=== PATIENT | female | born 1985 | race American Indian/Alaskan Native ===

== ENCOUNTER 2018-11-23 22:05 | Emergency (ER) | payer SELFPAY ==
[2018-11-23 22:15] VITALS: BP 97/53; PULSE 72; RESP 16; TEMP 37; O2SAT 94; BMI 34.0
[2018-11-23 23:17] VITALS: BP 103/61; PULSE 80; RESP 18; O2SAT 100
--- NOTE | 2018-11-24 03:12 | ED_ITS ---
HPI - Extremity Injury (Lower) General Chief Complaint: Extremity Injury, Lower Stated Complaint: toe on right foot hurts for couple of days Time Seen by Provider: 11/23/18 22:05 Source: patient Mode of arrival: ambulatory Limitations: no limitations History of Present Illness HPI Narrative: 32-year-old female nonsmoker presents to the emergency department with a chief complaint of a few days of worsening right great toe pain. She admits to some redness and swelling around the base of her nail and lateral aspect of the toe which had turned yellowish. She states that she was walking to the emergency department today and felt a pop followed by warmth and wet drainage in her sock. She denies a tremendous improvement in her symptoms. She denies any systemic findings such as fevers shaking chills. She denies any specific trauma or injury MD complaint: other Onset (ago): day(s) Type of Injury: unknown Severity: mild Relieving factors: rest Exacerbating factors: weight bearing and movement Associated symptoms: swelling Review of Systems Constitutional Denies chills, Denies fever(s), Denies lethargy and Denies weakness Eyes Denies change in vision, Denies eye discharge, Denies irritation and Denies loss of vision ENT Ears, Nose, Mouth, and Throat: Denies change in voice, Denies neck pain and Denies sore throat Cardiovascular Denies chest pain, Denies irregular heart rhythm, Denies lightheadedness, Denies palpitations, Denies dyspnea, Denies dyspnea on exertion and Denies orthopnea Respiratory Denies cough, Denies dyspnea, Denies dyspnea on exertion and Denies wheezing Gastrointestinal Gastrointestinal: Denies abdominal pain, Denies change in bowel habits, Denies diarrhea, Denies nausea and Denies vomiting Genitourinary Denies hematuria, Denies flank pain, Denies urinary incontinence and Denies urinary urgency Musculoskeletal Denies neck pain Integumentary/Breasts Denies pruritus, Reports erythema, Denies rash, Reports skin pain, Reports skin swelling and Denies wounds Neurologic Denies confusion, Denies loss of vision and Denies weakness Psychiatric Denies anxiety, Denies confusion, Denies depression, Denies homicidal ideation and Denies suicidal ideation Endocrine Denies palpitations Hematologic/Lymphatic Denies easy bruising Allergic/Immunologic Denies wheezing [employer] Social History Smoking Status: Never smoker Social History Smoking Status: Never smoker Exam Narrative Exam Narrative: GEN: AOx3 and in mild distress EYES: Pupils are equal, round, and reactive to light and accommodation. Extraocc ular muscles are intact bilaterally. There is no subconjunctival hemorrhage or exudate. CHEST: Lungs are clear to auscultation bilaterally and free of wheezes, rales, or rhonchi. Heart rate is regular rhythm, there are no murmurs, clicks, rubs, or gallops. There is no chest wall tenderness. ABD: Abdomen is soft and nontender. There is no guarding or rebound. Bowel sounds are normal in all 4 quadrants. There is no mass or organomegaly. EXT: Full painless ROM of all extremities with no loss of sensation or strength. SKIN: Redness and warmth at the nail fold of right great toe consistent with paronychia Initial Vital Signs Initial Vital Signs: Vital Signs Temperature 98.6 F 11/23/18 22:15 Pulse Rate 72 11/23/18 22:15 Respiratory Rate 16 11/23/18 22:15 Blood Pressure 97/53 L 11/23/18 22:15 Pulse Oximetry 94 11/23/18 22:15 Course Vital Signs - 8 hr 11/23/18 22:15 11/23/18 23:17 Temperature 98.6 F Pulse Rate 72 80 Respiratory Rate 16 18 Blood Pressure 97/53 L Blood Pressure [Right Arm] 103/61 Pulse Oximetry 94 100 Discharge Plan Departure Patient Disposition: Home Clinical Impression: Paronychia Discharge Date/Time: 11/23/18 23:22 Interventions: ED Discharge Assessment Last Done: 11/23/18 23:21 Instructions: DI for Paronychia Activity Restrictions/Additional Instructions: *You have been diagnosed with [right great toe paronychia] *What to do: * soak in Epsom salts *Follow up with your primary care provider in 2-3 days, call for an appointment. Let them know you were seen in the Emergency Department and that we ask that you be seen in follow up *Return to ER if you should have any new, worsening or concerning symptoms Referrals: Duong Sevilla DPM [Physician] -
== END 2018-11-23 23:22 | disposition home or self-care (01) ==
PROVIDERS: Emergency Provider Emergency Medicine
DX: L03.031 Cellulitis of right toe (principal)
CPT/HCPCS: 99282

== ENCOUNTER → 2019-02-12 14:48 | Outpatient (CLI) | payer MEDICAID, SELFPAY ==
--- NOTE | 2019-02-12 | DI.US.S_ITS ---
PROCEDURE: US OB <= 14 WEEKS FETUS INDICATIONS: SIZE AND DATES OUTSIDE/PRIOR DATING DATA: First dating scan (date and location): 02/12/19. Estimated date of delivery (TESHA) from first dating scan: 09/27/19. TECHNIQUE: Real-time scanning was performed of the fetus and maternal pelvic organs, with image documentation. Endovaginal scanning not performed at the patient's request COMPARISON: None. FINDINGS: Embryo: No definite pole visualized. Gestational sac present with mean diameter 2.6 cm corresponding to 7 weeks 4 days. Measurement variability in dating: +/- 4 weeks by LMP, +/- 7 days by mean sac diameter (use before 6 weeks gestation if crown-rump length not able to be measured), +/- 5 days by crown-rump length (up to 8 weeks 6 days gestation), +/- 7 days by crown-rump length (up to 13 weeks 6 days gestation). Maternal organs: Adnexa within normal limits. Limited images through the kidneys demonstrate no hydronephrosis. IMPRESSION: Intrauterine gestational sac with mean diameter of 26 mm corresponding to 7 weeks 4 days. No definitive pole or yolk sac is seen; although this may be related to the fact that no high-resolution endovaginal imaging was performed at the patient's request. Early embryonic demise or blighted ovum cannot be excluded and close clinical correlation with serial beta-hCGs is recommended and/or followup sonographic imaging including endovaginal scanning. Dictated by: Chintan MANN Interpreted: Mami Morris MD on 02/12/2019 at 16:39 Approved by: Mami Morris M.D. on 02/12/2019 at 17:46
== END ==
PROVIDERS: Visit Provider Family Medicine
DX: Z36.87 Encounter for antenatal screening for uncertain dates (principal); Z3A.01 Less than 8 weeks gestation of pregnancy
CPT/HCPCS: 76801

== ENCOUNTER → 2019-02-20 12:58 | Outpatient (CLI) | payer MEDICAID, SELFPAY ==
[2019-02-20 14:17] LABS: HCG Quantitative /Beta subunit 80821 mIU/mL
== END ==
PROVIDERS: Visit Provider Family Medicine
DX: Z34.81 Encounter for supervision of other normal pregnancy, first trimester (principal)
CPT/HCPCS: 36415; 84702

== ENCOUNTER → 2019-02-25 08:40 | Outpatient (CLI) | payer MEDICAID, SELFPAY ==
--- NOTE | 2019-02-25 08:41 | DI.US.S_ITS ---
PROCEDURE: US OB <= 14 WEEKS FETUS INDICATIONS: REPEAT US FOR VIABILITY OUTSIDE/PRIOR DATING DATA: First dating scan (date and location): 02/12/19. Estimated date of delivery (TESHA) from first dating scan: 10/12/19 TECHNIQUE: Real-time scanning was performed of the fetus and maternal pelvic organs, with image documentation. Endovaginal scanning was also performed to better visualize the fetus and maternal ovaries. COMPARISON: [facility], , OB <= 14 WEEKS FETUS, 02/12/2019, 15:42. FINDINGS: Embryo: [place]-rump length measures 5 mm corresponding to 6 weeks 1 day. No heart tones identified. Small perigestational sac bleed site measuring roughly 2.4 x 1.4 cm Measurement variability in dating: +/- 4 weeks by LMP, +/- 7 days by mean sac diameter (use before 6 weeks gestation if crown-rump length not able to be measured), +/- 5 days by crown-rump length (up to 8 weeks 6 days gestation), +/- 7 days by crown-rump length (up to 13 weeks 6 days gestation). Maternal organs: Ovaries within normal limits, with left corpus luteal cyst. Limited images through the kidneys demonstrate no hydronephrosis. IMPRESSION: 1. [place]-rump length measuring 5 mm corresponding to 6 weeks one day and no definitive heart tones are visualized. Findings suspicious for early embryonic demise. Recommend correlation with serial quantitative beta hCGs and if indicated followup ultrasound. Dictated by: Chintan MANN Interpreted: Kait Andrews MD on 02/25/2019 at 9:57 Approved by: Kait Andrews M.D. on 02/25/2019 at 13:10
== END ==
PROVIDERS: Family Provider Family Medicine; PCP Family Medicine; Visit Provider Family Medicine
DX: O36.80X0 Pregnancy with inconclusive fetal viability, not applicable or unspecified (principal); Z3A.01 Less than 8 weeks gestation of pregnancy
CPT/HCPCS: 76801; 76830

== ENCOUNTER → 2019-02-26 11:31 | Outpatient (CLI) | payer MEDICAID, SELFPAY ==
[2019-02-26 13:29] LABS: HCG Quantitative /Beta subunit 65020 mIU/mL
== END ==
PROVIDERS: Visit Provider Family Medicine
DX: Z34.90 Encounter for supervision of normal pregnancy, unspecified, unspecified trimester (principal)
CPT/HCPCS: 36415; 84702

== ENCOUNTER 2019-03-28 06:22 | Day surgery (SDC) | payer MEDICAID, SELFPAY ==
[2019-03-27 07:20] VITALS: BMI 34.1
[2019-03-28] VITALS (8 sets, daily range): BP systolic 81–103; BP diastolic 50–68; PULSE 72–102; RESP 16–22; TEMP 35.6–36.9; O2SAT 98–100; BMI 34.1
--- NOTE | 2019-03-28 | PATH_ITS ---
[facility] Accession Number: [id number] . 01 Material submitted: . product of conception - PRODUCTS OF CONCEPTION . 02 Diagnosis: Products of Conception: Products of conception identified. V 03/29/2019 1424 Local . 02 Electronically signed: . Savita Balderas MD, Pathologist NPI- [id number] . 01 Gross description: . PRODUCTS OF CONCEPTION: Received in formalin are multiple fragments of hemorrhagic spongy tissue measuring 6.0 x 4.0 x 0.2 cm in aggregate. parts are not identified. Siphoner sections are submitted in 4 cassettes. [place] [place]2019[place] Local . 02 Pathologist provided ICD-10: O02.1 . 02 CPT . 588326 Performed at: 01 [facility] [address] [id number] MD Bereket Candelaria MD Phone: [phone] Performed at: [address] [facility] [address] [place], [place] [id number] MD Janessa Blount MD Phone: [phone]
[2019-03-28] MEDS: LACTATED RINGERS 1,000 ML 100 ML IV (07:24)
--- NOTE | 2019-03-28 07:27 | PM.PREOP ---
Pre-operative Note Interval Note History & Physical reviewed/Exam performed by Physician: Yes Changes to H&P: No H&P completed within 30 days and has changed as indicated here:: See outpatient note from 03/27/2019
[2019-03-28 07:51] LABS: Add Manual Diff / Slide Review NO; Basophils Absolute Auto 100 /uL (0-100); Basophils Percent Auto 0.7 % (0-2); Eosinophils Absolute Auto 700 /uL (0-450); Hematocrit 34.2 % (36-46); Hemoglobin 11.5 g/dL (12.0-16.0); Lymphocytes Absolute Auto 2700 /uL (1100-4500); Lymphocytes Percent Auto 37.4 % (25-40); Mean Corpuscular HGB Conc 33.6 % (30-36); Mean Corpuscular Hemoglobin 28.6 PG (26-34); Mean Corpuscular Volume 85.3 fL (80-100); Monocytes Absolute Auto 500 /uL (0-900); Monocytes Percent Auto 7.6 % (3-14); Neutrophils Absolute Auto 3200 /uL (1500-7000); Neutrophils Percent Auto 44.3 % (50-75); Platelet Count 273 X10^3/uL (150-400); Red Cell Distribution Width 14.3 % (11.6-14.8); White Blood Cell Count 7.1 X10^3/uL (4.5-11.0)
--- NOTE | 2019-03-28 08:06 | SUR.OPER ---
Lithotomy on padded OR bed, head on pillow, arms secured on padded arm boards at <90 degrees abduction. Legs secured in padded yellow fins stirrups.
--- NOTE | 2019-03-28 08:19 | PM.OP.1 ---
Operative Date/Time/Diagnoses Date of procedure: 03/28/19 Time of procedure: 08:19 Pre-op diagnosis: Incomplete AB Post-op diagnosis: same Procedure & Clinicians Procedure: Suction D&C Same procedure as scheduled: Yes Indications: Incomplete miscarriage Surgeon: Payal Gallegos Click Yes if Unassisted: Yes Anesthesia Type: General Operative Notes Findings: Large amount of retained products of conception Closure Type: not applicable Specimen(s): other (Products of conception) Estimated Blood Loss (mL): 150 Blood products transfused: none Procedure in detail: Patient was brought to the operating room where she underwent general anesthesia. She was placed in low Yellofin stirrups and prepped and draped in the usual sterile fashion. A check system was reviewed with the staff in the room. 2 g Ancef were in prior to beginning of the case. Pulsatile stockings were in place and functional. Warming was with blankets. A single-tooth tenaculum was placed on the anterior lip of the cervix. The cervix was found to be dilated to more than the 10 mm Hegar dilator. The suction curette was placed to the fundus and tissue was removed. Sharp curetting was performed followed by repeat suctioning. Gentle curetting revealed rough surfaces throughout the uterus. Final suction curetting was performed. Estimated blood loss 150 cc. Patient went to recovery room in good condition. Counts of instruments and sponges were correct. Complications: none Post-operative Condition: stable Disposition: same day surgery Plan for aftercare: Routine post D&C care
[2019-03-28] MEDS: KETOROLAC 30 MG/ML VIAL IV (08:30)
[2019-03-28] MEDS: LACTATED RINGERS 1,000 ML 42 ML IV (08:37)
--- NOTE | 2019-03-28 09:14 | SUR.PHASEII ---
Recheck of patient's blood pressure after 1500 of LR is 96/63. Patient asymptomatic, even when ambulating. Discharged home with significant other in stable condition. No RX provided. Instructed to follow up in 2 weeks and to make appt.
== END 2019-03-28 09:23 | disposition home or self-care (01) ==
PROVIDERS: Visit Provider Specialist
PROC: (CPT 58120; principal; 2019-03-28 07:45)
DX: O02.1 Missed abortion (principal); Z3A.08 8 weeks gestation of pregnancy
CPT/HCPCS: 59820; 85025; 86850; 86900; 86901; J1100; J1885; J2250; J2405; J2704; J3010

== ENCOUNTER → 2019-09-25 10:10 | Outpatient (CLI) | payer MEDICAID, SELFPAY ==
[2019-09-25 11:20] LABS: Appearance Urine UA CLEAR; Bilirubin Urine UA NEGATIVE (NEGATIVE); Color Urine UA YELLOW; Glucose Urine UA NEGATIVE (Negative); Ketones Urine UA NEGATIVE (NEGATIVE); Leukocyte Esterase Urine UA TRACE (NEGATIVE); Nitrite Urine UA NEGATIVE (Negative); Occult Blood Urine UA NEGATIVE (Negative); Protein Urine UA 1+ (Negative); Specific Gravity Urine UA 1.025 (1.000-1.035); Urobilinogen Urine UA 0.2 E.U./dL (0.2)
[2019-09-25 11:29] LABS: Add Manual Diff / Slide Review NO; Basophils Absolute Auto 0 /uL (0-100); Basophils Percent Auto 0.6 % (0-2); Eosinophils Absolute Auto 400 /uL (0-450); Eosinophils Percent Auto 6.4 % (2-4); Hematocrit 34.6 % (36-46); Lymphocytes Absolute Auto 2200 /uL (1100-4500); Lymphocytes Percent Auto 32.1 % (25-40); Mean Corpuscular HGB Conc 34.8 % (30-36); Mean Corpuscular Volume 83.3 fL (80-100); Monocytes Absolute Auto 500 /uL (0-900); Monocytes Percent Auto 7.7 % (3-14); Neutrophils Absolute Auto 3700 /uL (1500-7000); Neutrophils Percent Auto 53.2 % (50-75); Platelet Count 305 X10^3/uL (150-400); Red Blood Cell Count 4.15 X10^6/uL (4.0-5.2); Red Cell Distribution Width 15.2 % (11.6-14.8)
[2019-09-25 11:45] LABS: Bacteria Urine None Seen
[2019-09-25 12:03] LABS: RBC Urine 0-1/HPF (0-5/HPF)
[2019-09-25 12:04] LABS: Culture Indicated Urine Cult Not Indicated; Squamous Epithelial Cell Urine 1-5 /HPF (0-5/HPF); WBC Urine 1-5/HPF (0-5/HPF)
[2019-09-26 16:14] LABS: RPR Screen Non Reactive (Non Reactive); Varicella IgG Antibody 147 index (Immune >165)
[2019-09-26 16:48] LABS: Hepatitis B Surface Antigen NEGATIVE s/c (NEGATIVE); Rubella Antibody IgG 1.7 IU/mL (>15)
[2019-09-26 17:02] LABS: HIV 1 & 2 Ab/Ag 4th Gen Combo NEGATIVE (NEGATIVE); Hep C Virus Ab w/Reflex Quant NEGATIVE s/c (NEGATIVE)
== END ==
PROVIDERS: Referring Provider Specialist; Visit Provider Specialist
DX: Z34.81 Encounter for supervision of other normal pregnancy, first trimester (principal)
CPT/HCPCS: 36415; 80055; 81003; 81015; 86787; 86803; 86850; 86900; 86901; 87086; 87389

== ENCOUNTER → 2019-12-03 12:14 | Outpatient (CLI) | payer MEDICAID, SELFPAY ==
--- NOTE | 2019-12-03 12:16 | DI.US.S_ITS ---
PROCEDURE: US OB >= 14 WEEKS FETUS INDICATIONS: ANATOMY OUTSIDE/PRIOR DATING DATA: Last menstrual period (LMP): 07/22/2019 LMP-based estimated date of delivery (TESHA): 04/27/2020 First dating scan (date and location): 09/04/2019 Estimated date of delivery (TESHA) from first dating scan: 04/27/2020 TECHNIQUE: Real-time scanning was performed of the fetus, with image documentation and biometric measurements. COMPARISON: [facility], OB <= 14 WEEKS FETUS, 09/25/2019, 9:43. [facility] OB <= 14 WEEKS FETUS, 09/04/2019, 11:30. [facility] OB <= 14 WEEKS FETUS, 02/25/2019, 10:09. [facility] OB <= 14 WEEKS FETUS, 02/12/2019, 15:42. [facility] OB >= 14 WEEKS FETUS, 11/25/2019, 16:07. FINDINGS: General: A single live intrauterine gestation is present. Presentation: Variable. Placenta: Placental position is posterior , without previa. Amniotic fluid index: 8.4 cm, normal range is 5-24 cm. heart rate: 143 beats per minute. Maternal cervical canal: 3.7 cm long. Normal lower limit is 2.5 cm. biometrics: Biparietal diameter: 4.45 cm equals 19 weeks 3 days Head circumference: 17.02 cm equals 19 weeks 4 days Abdominal circumference: 14.16 cm equals 19 weeks 4 days Femur length: 3.07 cm equals 19 weeks 4 days Estimated gestational age from initial scan: 19 weeks 1 day Composite gestational age from present scan: 19 weeks 4 days Estimated weight and percentile: 298 g, 69th percentile Measurement variability for biometric dating: +/- 7 days from 14 weeks to 15 weeks 6 days gestation, +/- 10 days from 16 weeks to 21 weeks 6 days gestation, +/- 2 weeks from 22 weeks to 27 weeks 6 days gestation, +/- 3 weeks for 28 weeks gestation or later. weight reference: 4500 g or EFW >90/95% is considered macrosomia or large for gestational age. EFW <10% is small for gestational age. EFW 5% or less is considered intra-uterine growth restriction. Anatomic survey: Neuro: Ventricles are non-dilated at less than 10 mm. This is sternum bre measures at the lower limits of normal at 3 mm. Cerebellum is normal in size and morphology. Nuchal skin fold: Normal at less than 6 mm between 14-21 weeks gestational age. Face: Nose and lips, facial profile are normal. Spine: No evidence for spina bifida. Heart: 4-chambered heart is present, with normal ventricular outflow tracts. Diaphragm: Diaphragm is intact. Stomach: Left-sided stomach is present. Kidneys: No hydronephrosis. Normal is less than 5 mm in 2nd trimester, less than 7 mm in 3rd trimester. Cord: 3-vessel cord has orthotopic insertion. Bladder: Normal in size. Extremities: All 4 extremities identified. This study is limited by maternal body habitus and the relatively small amount of amniotic fluid. IMPRESSION: A single live intrauterine is seen. Normal interval growth when compared to the prior ultrasound examination. No anatomic abnormalities are identified. However, the cisterna magna measures at the lower limits of normal. The STEPHEN is near the lower limits of normal. Dictated by: Kiran Duran M.D. on 12/04/2019 at 15:22 Approved by: Kiran Duran M.D. on 12/04/2019 at 15:26
== END ==
PROVIDERS: Referring Provider Specialist; Visit Provider Specialist
DX: Z34.82 Encounter for supervision of other normal pregnancy, second trimester (principal); Z3A.19 19 weeks gestation of pregnancy
CPT/HCPCS: 76811

== ENCOUNTER → 2019-12-23 16:06 | Outpatient (CLI) | payer MEDICAID, SELFPAY | PROVIDERS: PCP Specialist; Visit Provider Specialist | DX: Z34.82 Encounter for supervision of other normal pregnancy, second trimester (principal); R35.0 Frequency of micturition | CPT/HCPCS: 87077; 87086 ==

== ENCOUNTER 2020-01-15 14:27 | Outpatient (CLI) | payer MEDICAID, SELFPAY ==
--- NOTE | 2020-01-15 15:10 | PM.OBTRLD ---
Visit Information Visit Information Date of evaluation: 01/15/20 Primary OB Provider: Payal Gallegos On-call OB Provider: Alejandra Dubose Reason for Evaluation: Yes other Comments/Additional reasons for admission: 34 YO @ 25 weeks here for evaluation s/p fall from parked car. Fell on her side, denies impact to abdomen or head. +FM. No cramping or VB Vital Signs Vital Signs: BP95/51, OF47fza, RR16/min, T96.5F temporal PFSH Medical History History of multiple miscarriages (Acute) Incomplete miscarriage (Inactive ~03/2019) Loss of teeth due to extraction (Acute) (spontaneous vaginal delivery) (Acute) Surgical History H/O dilation and curettage (Acute ~03/28/19) History of open reduction and internal fixation (ORIF) procedure (Acute ~2012) Hx laparoscopic cholecystectomy (Acute ~2003) Family History Father Diabetes mellitus Colon cancer Septicemia Mother Graves disease Nervous breakdown Alcohol abuse Grandmother Leukemia Septicemia Grandfather Stomach ulcer Grandfather No problems noted. Grandmother No problems noted. 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 special tate needs: No Smoking Status: Never smoker second hand exposure: Yes (Adis LAWSON ReeseDelmy) is a smoker) alcohol intake: former (pre- : occasional) substance use type: does not use Review of Systems Review of Systems ROS: Yes All systems reviewed with the patient and are negative except as otherwise documented Evaluation Evaluation Baseline heart rate: 145 Variability: Moderate (11-25) monitor accelerations: Present monitor decelerations: Absent Contraction Frequency (minutes): 0 Comments: CE deferred Diagnosis, Plan/Disposition Final Diagnosis (1) Status post fall: Status: Acute Problem details: No concern for labor or abruption. Plan/Disposition Plan: Reassurance given. Reviewed warning sx and when to call. Follow-up w/ OBGyn as previously scheduled. Discharge or given @ 1510. OB Disposition: home
== END 2020-01-15 15:45 | disposition home or self-care (01) ==
LOC: LABOR 14:44 → OB 01-16 10:21
PROVIDERS: PCP Specialist; Referring Provider Specialist; Visit Provider Specialist
DX: O26.22 Pregnancy care for patient with recurrent pregnancy loss, second trimester (principal); Z3A.25 25 weeks gestation of pregnancy; W01.0XXA Fall on same level from slipping, tripping and stumbling without subsequent striking against object, initial encounter
CPT/HCPCS: 59025; G0378; G0379

== ENCOUNTER → 2020-01-17 10:44 | Outpatient (CLI) | payer MEDICAID, SELFPAY ==
[2020-01-17 12:41] LABS: Hematocrit 32.5 % (36-46); Hemoglobin 11.1 g/dL (12.0-16.0)
[2020-01-17 13:30] LABS: GTT (PREG) 1 Hour PP 50gm Dose 80 mg/dL (76-139)
== END ==
PROVIDERS: PCP Specialist; Referring Provider Specialist; Visit Provider Specialist
DX: Z34.82 Encounter for supervision of other normal pregnancy, second trimester (principal)
CPT/HCPCS: 36415; 82950; 85014; 85018

== ENCOUNTER → 2020-01-27 14:52 | Outpatient (CLI) | payer MEDICAID, SELFPAY | PROVIDERS: PCP Specialist; Visit Provider Specialist | DX: Z34.82 Encounter for supervision of other normal pregnancy, second trimester (principal); Z3A.27 27 weeks gestation of pregnancy | CPT/HCPCS: 87086 ==

== ENCOUNTER 2020-02-23 12:30 | Outpatient (CLI) | payer MEDICAID, SELFPAY ==
[2020-02-23 13:05] LABS: Appearance Urine UA SL CLOUDY; Bilirubin Urine UA NEGATIVE (NEGATIVE); Color Urine UA YELLOW; Glucose Urine UA NEGATIVE (Negative); Ketones Urine UA NEGATIVE (NEGATIVE); Leukocyte Esterase Urine UA 3+ (NEGATIVE); Nitrite Urine UA NEGATIVE (Negative); Occult Blood Urine UA 3+ (Negative); Protein Urine UA NEGATIVE (Negative); Specific Gravity Urine UA <=1.005 (1.000-1.035); Urobilinogen Urine UA 0.2 E.U./dL (0.2)
[2020-02-23 13:11] LABS: pH Urine UA 5.5 (4.5-8.0)
[2020-02-23 13:14] LABS: Amorphous Sediment Urine 2+; Bacteria Urine Moderate (10-30); Culture Indicated Urine Specimen Cultured; RBC Urine 1-5/HPF (0-5/HPF); Squamous Epithelial Cell Urine 0-1 /HPF (0-5/HPF); WBC Urine 10-30/HPF (0-5/HPF)
== END 2020-02-23 13:39 | disposition home or self-care (01) ==
LOC: OB 02-24 12:01
PROVIDERS: PCP Specialist; Referring Provider Obstetrics & Gynecology; Visit Provider Obstetrics & Gynecology
DX: O46.93 Antepartum hemorrhage, unspecified, third trimester (principal); R10.30 Lower abdominal pain, unspecified; O26.23 Pregnancy care for patient with recurrent pregnancy loss, third trimester; O09.523 Supervision of elderly multigravida, third trimester; Z3A.30 30 weeks gestation of pregnancy
CPT/HCPCS: 59025; 81001; 87086; G0378; G0379

== ENCOUNTER → 2020-03-25 10:15 | Outpatient (CLI) | payer MEDICAID, SELFPAY ==
[2020-03-26 11:35] LABS: Strep Grp B PCR NEG for Grp B Strep
== END ==
PROVIDERS: Visit Provider Specialist
DX: Z34.83 Encounter for supervision of other normal pregnancy, third trimester (principal); Z3A.35 35 weeks gestation of pregnancy
CPT/HCPCS: 87653

== ENCOUNTER 2020-04-10 01:04 | Outpatient (CLI) | payer MEDICAID, SELFPAY ==
[2020-04-10 01:54] LABS: Bacteria Urine None Seen; RBC Urine None Seen (0-5/HPF); WBC Urine None Seen (0-5/HPF)
[2020-04-10 01:56] LABS: Appearance Urine UA CLEAR; Bilirubin Urine UA NEGATIVE (NEGATIVE); Color Urine UA YELLOW; Glucose Urine UA NEGATIVE (Negative); Ketones Urine UA NEGATIVE (NEGATIVE); Leukocyte Esterase Urine UA NEGATIVE (NEGATIVE); Nitrite Urine UA NEGATIVE (Negative); Occult Blood Urine UA NEGATIVE (Negative); Protein Urine UA NEGATIVE (Negative); Specific Gravity Urine UA <=1.005 (1.000-1.035); Urobilinogen Urine UA 0.2 E.U./dL (0.2)
[2020-04-10 02:15] LABS: pH Urine UA 6.5 (4.5-8.0)
[2020-04-10 02:19] LABS: Culture Indicated Urine Cult Not Indicated; Squamous Epithelial Cell Urine 0-1 /HPF (0-5/HPF)
== END 2020-04-10 02:45 | disposition home or self-care (01) ==
LOC: LABOR 01:09 → OB 11:06
PROVIDERS: Referring Provider Family Medicine; Visit Provider Family Medicine
DX: O47.1 False labor at or after 37 completed weeks of gestation (principal); Z3A.37 37 weeks gestation of pregnancy
CPT/HCPCS: 81001; G0378; G0379

== ENCOUNTER 2020-04-10 05:16 | Inpatient (IN) | payer MEDICAID, SELFPAY ==
[2020-04-10 06:07] LABS: COVID19 -Nasal RAPID Negative (Negative)
[2020-04-10 07:20] LABS: Add Manual Diff / Slide Review NO; Basophils Absolute Auto 100 /uL (0-100); Basophils Percent Auto 0.7 % (0-2); Eosinophils Absolute Auto 0 /uL (0-450); Eosinophils Percent Auto 0.2 % (2-4); Hematocrit 36.9 % (36-46); Hemoglobin 12.3 g/dL (12.0-16.0); Lymphocytes Absolute Auto 4000 /uL (1100-4500); Lymphocytes Percent Auto 35.5 % (25-40); Mean Corpuscular HGB Conc 33.3 % (30-36); Mean Corpuscular Hemoglobin 28.9 PG (26-34); Mean Corpuscular Volume 86.8 fL (80-100); Monocytes Absolute Auto 500 /uL (0-900); Monocytes Percent Auto 4.4 % (3-14); Neutrophils Absolute Auto 6700 /uL (1500-7000); Neutrophils Percent Auto 59.2 % (50-75); Platelet Count 272 X10^3/uL (150-400); Red Blood Cell Count 4.25 X10^6/uL (4.0-5.2); Red Cell Distribution Width 13.8 % (11.6-14.8); White Blood Cell Count 11.3 X10^3/uL (4.5-11.0)
[2020-04-10] MEDS: LACTATED RINGERS 1,000 ML 100 ML IV ×2 (07:27→08:23)
[2020-04-10] MEDS: ONDANSETRON 4 MG/2 ML INJ IV (08:08)
--- NOTE | 2020-04-10 08:12 | P.HPOB_ITS ---
OB HPI Date/Time Date of admission: 04/10/20 Date Patient Seen: 04/10/20 Time Patient Seen: 08:13 History of Present Condition Chief complaint: Observation of labor : 7 Para: 3 Estimated Date of Delivery: 04/27/20 Estimated Gestational Age (weeks): 37 Narrative: Lisa Rodriguez is a 34 year old female admitted in active labor History of Present care: good care, initiated at week # (9), number of visits (11) and pounds weight gain (4) Dating criteria: LMP confirmed by 1st trimester US Ultrasounds: normal mid trimester US Obstetrical complications: none Medical complications: none Preadmission Labs Blood type: O (+) positive -: Antibody screen: negative, GBS status: negative, HBsAG: negative, HIV: negative and RPR/VDLR: negative -: Chlamydia screen: not detected and Gonorrhea screen: not detected -: Rubella: not immune and Varicella: immune HCAB: negative 1 hr GTT: 80 Prior (ies) History: see chart Evaluation Evaluation Baseline heart rate: 125 Variability: Moderate (11-25) monitor accelerations: Present monitor decelerations: Absent Contraction Frequency (minutes): 3 Uterine Contraction Intensity: Strong/Firm Category of Tracing: Reactive Status: Category l Cervical dilation (cm): 7 Cervical effacement (%): 90 station: -1 Laboratory results: Laboratory Tests 04/10/20 04/10/20 04/10/20 05:20 06:50 06:50 WBC 11.3 H RBC 4.25 Hgb 12.3 Hct 36.9 MCV 86.8 MCH 28.9 MCHC 33.3 RDW 13.8 Plt Count 272 Neut % (Auto) 59.2 Lymph % (Auto) 35.5 [place] % (Auto) 4.4 Eos % (Auto) 0.2 L Baso % (Auto) 0.7 Neut # (Auto) 6700 Lymph # (Auto) 4000 [place] # (Auto) 500 Eos # (Auto) 0 Baso # (Auto) 100 COVID-19 PCR Negative Blood Type O Positive Antibody Screen Negative PFSH Medical History (Updated 03/30/20 @ 11:22 by Payal Gallegos MD) History of multiple miscarriages Incomplete miscarriage (~03/2019) Loss of teeth due to extraction (spontaneous vaginal delivery) Surgical History H/O dilation and curettage (~03/28/19) History of open reduction and internal fixation (ORIF) procedure (~2012) Hx laparoscopic cholecystectomy (~2003) Family History Father Diabetes mellitus Colon cancer Septicemia Mother Graves disease Nervous breakdown Alcohol abuse Grandmother Leukemia Septicemia Grandfather Stomach ulcer Grandfather No problems noted. Grandmother No problems noted. 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 special tate needs: No Smoking Status: Never smoker second hand exposure: Yes (Adis LAWSON ReeseDelmy) is a smoker) alcohol intake: former (pre- : occasional) substance use type: does not use Meds Home Medications and Allergies Home Medications Medication Instructions Recorded Confirmed Type prenat.vits,matthias,afz-rlez-elkji 1 tab PO DAILY 09/18/19 04/06/20 History ondansetron HCl 4 mg tablet 4 mg PO Q6H PRN #20 tab 09/25/19 04/06/20 Rx Allergies Allergy/AdvReac Type Severity Reaction Status Date / Time No Known Drug Allergies Allergy Verified 03/25/20 10:08 Review of Systems Review of Systems Narrative: Patient denies headaches, scotomata, epigastric pain. Good movement. No rupture membranes ROS: Yes All systems reviewed with the patient and are negative except as otherwise documented Exam Vital Signs (past 8 hours): Blood pressure 111/65, pulse 70, temperature 36.8? Narrative Exam Narrative: HEENT exam within normal limits. Lungs are clear to aus cultation percussion. Heart is regular rate and rhythm no S3-S4 murmurs. Abdomen is gravid. Extremities without edema and nontender. Objective Labs Result Diagrams: 04/10/20 06:50 Labs: Laboratory Results - last 24 hr 04/10/20 04/10/20 04/10/20 05:20 06:50 06:50 WBC 11.3 H RBC 4.25 Hgb 12.3 Hct 36.9 MCV 86.8 MCH 28.9 MCHC 33.3 RDW 13.8 Plt Count 272 Neut % (Auto) 59.2 Lymph % (Auto) 35.5 [place] % (Auto) 4.4 Eos % (Auto) 0.2 L Baso % (Auto) 0.7 Neut # (Auto) 6700 Lymph # (Auto) 4000 [place] # (Auto) 500 Eos # (Auto) 0 Baso # (Auto) 100 COVID-19 PCR Negative Blood Type O Positive Antibody Screen Negative Assessment and Plan Assessment and Plan Assessment and Plan narrative: 37 week gestation in active labor. Patient received an epidural catheter for pain control. Anticipate vaginal delivery.
[2020-04-10] MEDS: OXYTOCIN 10 UNIT/ML VIAL IM (09:13)
[2020-04-10] MEDS: miSOPROStoL 200 MCG TABLET 800 MCG PR (09:20)
[2020-04-10] MEDS: OXYTOCIN 10 UNIT/ML VIAL 20 UNIT (09:24)
--- NOTE | 2020-04-10 09:30 | P.PCNOB_ITS ---
Labor & Delivery Delivery date: 04/10/20 Cervical ripening method: none Induction method: none Delivery augmentation: rupture of membranes Delivery monitor: external FHT and external uterine Route of delivery: L&D Laceration Description: None Estimated blood loss (mL): 700 Anesthesia Type: Epidural Narrative: Patient arrived on Labor and delivery in active labor. She received an epidural catheter for pain control. She had a moderate amount of bloody show. She was AROM for clear fluid. heart tones category 1 to category 2 throughout labor. Patient after AROM progressed rapidly to complete and pushing. The viable female delivered spontaneously, over an intact perineum, and was placed immediately on maternal abdomen. After the cord stopped pulsating the cord was clamped, cut, and cord bloods obtained. Patient had moderate amount of bleeding prior to separation of the placenta. The placen ta delivered spontaneously, intact, with 3 vessels. There were no cervical, vaginal, or perineal tears. The initial blood loss at that point was about 400 cc. However shortly after delivery of the placenta the patient continued to have significant bleeding despite IM Pitocin, and uterine massage. Patient was given IM methargen and rectal 800 micro g of Cytotec. The patient then had significant decrease in her bleeding. Final estimate blood loss approximately 700 cc. Both infant mother doing well. [place] Baby 1: Infant gender: Female Presentation: vertex Position: Right Occiput Transverse Placenta delivery description: Spontaneous Cord Vessel Description: 3 Vessels score (1 min): 9 score (5 min): 9 Plan for aftercare: Patient is planning a tubal ligation which will be performed later this afternoon. Monitor for continued bleeding.
--- NOTE | 2020-04-10 12:31 | PM.PREOP ---
Pre-operative Note COVID-19 COVID-19 status: Negative Result date/Date tested (Pos, Neg/Pending): 04/10/20 Interval Note History & Physical reviewed/Exam performed by Physician: Yes Changes to H&P: Yes H&P completed within 30 days and has changed as indicated here:: Spontaneous vaginal delivery with hemorrhage.
[2020-04-10] MEDS: LACTATED RINGERS 1,000 ML 42 ML IV ×2 (12:52→13:47)
[2020-04-10] MEDS: CEFAZOLIN 2 GM/100 ML FROZ.PIGGY IV (13:15)
[2020-04-10] MEDS: BUPIVACAINE 0.5% W/ EPI (PF) 30 ML VIAL INJ (13:36)
--- NOTE | 2020-04-10 13:38 | SUR.OPER ---
Supine on padded OR bed, head on pillow, arms secured on padded arm boards at <90 degrees abduction, legs uncrossed, safety belt at thigh, tape over blanket over lower legs.
--- NOTE | 2020-04-10 13:59 | P.OP_ITS ---
Operative Date/Time/Diagnoses Date of procedure: 04/10/20 Time of procedure: 13:59 Pre-op diagnosis: Sterilization Post-op diagnosis: same Procedure & Clinicians Procedure: Mini-laparotomy bilateral tubal ligation Same procedure as scheduled: Yes Indications: wish for sterilization Surgeon: Payal Gallegos Ear Nose Throat Surgeon: Keli Harry Anesthesia Type: General Operative Notes Findings: Normal bilateral tubes, bilateral ovaries palpate normal Closure Type: primary Specimen(s): other (Segments of bilateral fallopian tubes) Estimated Blood Loss (mL): 1 Blood products transfused: none Procedure in detail: Patient was brought to the operating room where she underwent general anesthesia. She was prepped and draped in the usual sterile fashion in a supine position. A check system was reviewed with the staff in the room prior to beginning the case. 2 g of Ancef were in, warming was with blankets, pulsatile stockings in place and functional. An incision was made through prior super umbilical incision after injecting with lidocaine. The incision was carried down the fascial layer which was incised transversely. The right fallopian tube was grasped with the Riri and a segment tied off x2 with 0 plain suture with the intervening section removed with scissors. The area of the tube was injected with approximately 3 cc of lidocaine. The same procedure was performed on the left fallopian tube. The fascial layer was closed with 0 Vicryl suture. The skin was closed with 4-0 Monocryl. Patient went to recovery room in good condition. Counts of instruments and sponges were correct. Complications: none Post-operative Condition: stable Disposition: other ( Center) Plan for aftercare: Routine post vaginal delivery with tubal ligation
[2020-04-10 14:07] VITALS: BP 144/81; PULSE 102; RESP 12; TEMP 36.9; O2SAT 99
[2020-04-10 14:12] VITALS: BP 115/50; PULSE 98; RESP 14; O2SAT 100
[2020-04-10 14:17] VITALS: BP 116/58; PULSE 92; RESP 18; TEMP 36.5; O2SAT 100
[2020-04-10 14:22] VITALS: BP 100/55; PULSE 85; RESP 10; O2SAT 95
[2020-04-10 14:27] VITALS: BP 129/57; PULSE 92; RESP 20; O2SAT 98
[2020-04-10] MEDS: METHYLERGONOVINE 0.2 MG TABLET PO (16:46)
--- NOTE | 2020-04-10 17:23 | PM.OBDS.1 ---
Discharge Providers Provider Date of admission: 04/10/20 05:16 Discharge Date: 04/10/20 Primary care physician: Doctor Royce MD Consults: 04/10/20 06:31 Consult to Anesthesiology Urgent Comment: Consulting Provider: Anesthesiologist Reason for consultation: Epidural Has provider been notified: No 04/11/20 09:28 Consult to Poker Machine Attendant Routine Comment: Discharge provider: Payal Gallegos MD Summary Hospital Course Date Patient Seen: 04/10/20 Time Patient Seen: 17:24 Procedures: Epidural catheter, vaginal delivery, hemorrhage, mini-laparotomy tubal ligation Hospital Course: Patient arrived on Labor and delivery in active labor. Patient had hemorrhage due to atony. Patient had a mini-laparotomy tubal ligation. The patient is requesting possible early discharge due to imminent of a family member. Patient denies any pain. She is ambulatory. Peripartum Data Delivery Method: Natural Vaginal Laceration Description: None Procedures: Epidural catheter, spontaneous vaginal delivery, mini-laparotomy tubal ligation. complications: uterine atony [place] 1: Gender: Female Disposition of : home Discharge Diagnosis (1) Vaginal delivery: Status: Acute (2) Sterilization: Status: Acute Status at Discharge Cognitive/behavioral status at discharge: oriented Functional status at discharge: independent ambulation Overall status at discharge: patient is progressing back to baseline Time Spent with Patient Time attestation: Total time spent providing and/or coordinating discharge services: Time spent: Less than 30 minutes Objective Labs Result Diagrams: 04/10/20 06:50 Labs: Laboratory Results - last 24 hr 04/10/20 04/10/20 04/10/20 05:20 06:50 06:50 WBC 11.3 H RBC 4.25 Hgb 12.3 Hct 36.9 MCV 86.8 MCH 28.9 MCHC 33.3 RDW 13.8 Plt Count 272 Neut % (Auto) 59.2 Lymph % (Auto) 35.5 [place] % (Auto) 4.4 Eos % (Auto) 0.2 L Baso % (Auto) 0.7 Neut # (Auto) 6700 Lymph # (Auto) 4000 [place] # (Auto) 500 Eos # (Auto) 0 Baso # (Auto) 100 COVID-19 PCR Negative Blood Type O Positive Antibody Screen Negative Exam Vital Signs (past 8 hours): - 04/10/20 14:07 04/10/20 14:12 04/10/20 14:17 Temperature 98.4 F 97.7 F Pulse Rate 102 H 98 H 92 H Respiratory Rate 12 14 18 Blood Pressure 144/81 H 115/50 L 116/58 L Pulse Oximetry 99 100 100 04/10/20 14:22 04/10/20 14:27 Temperature Pulse Rate 85 92 H Respiratory Rate 10 L 20 Blood Pressure 100/55 L 129/57 L Pulse Oximetry 95 98 Oxygen Delivery Method Room Air Narrative Exam Narrative: Abdomen is soft, nontender. Dressing at umbilicus is dry. Uterus is firm, at U, nontender. Moderate lochia. Extremities without edema and nontender. Patient is Rh positive, she will receive the rubella vaccine prior to discharge. She received the Tdap in the 3rd trimester. Discharge Plan Discharge Plan Patient Disposition: Home Discharge orders & Medications Prescriptions: Continued ondansetron HCl 4 mg tablet 4 mg PO Q6H PRN (Reason: nausea and vomiting) Qty: 20 RF: 3 prenat.vits,mattihas,thj-gcvh-cipvs Tablet 1 tab PO DAILY RF: 0 Follow up/Referrals: Payal Gallegos MD [Physician] - 05/08/20 1:45 pm Doctor Crane MD [Primary Care Provider] - Diet/Activity/Treatments Diet: Regular Activity: Nothing in vagina for 4 weeks Skin/Wound/Dressing Care Report to your healthcare provider any signs of infection, such as:: chills, fever and increased pain Discharge Data Primary Care Provider: Doctor Royce
[2020-04-11 06:46] LABS: Add Manual Diff / Slide Review NO; Basophils Absolute Auto 100 /uL (0-100); Basophils Percent Auto 0.4 % (0-2); Eosinophils Absolute Auto 0 /uL (0-450); Hematocrit 33.6 % (36-46); Hemoglobin 11.1 g/dL (12.0-16.0); Lymphocytes Absolute Auto 3000 /uL (1100-4500); Lymphocytes Percent Auto 14.5 % (25-40); Mean Corpuscular HGB Conc 33.2 % (30-36); Mean Corpuscular Hemoglobin 28.9 PG (26-34); Mean Corpuscular Volume 87.2 fL (80-100); Monocytes Absolute Auto 1100 /uL (0-900); Monocytes Percent Auto 5.2 % (3-14); Neutrophils Absolute Auto 16200 /uL (1500-7000); Neutrophils Percent Auto 79.9 % (50-75); Platelet Count 220 X10^3/uL (150-400); Red Blood Cell Count 3.85 X10^6/uL (4.0-5.2); Red Cell Distribution Width 13.4 % (11.6-14.8); White Blood Cell Count 20.3 X10^3/uL (4.5-11.0)
[2020-04-11] MEDS: MEASLES,MUMPS,RUBELLA VACC/PF 0.5 ML VIAL SUBCUT (07:01)
== END 2020-04-11 07:35 | disposition home or self-care (01) | DRG 796 ==
PROVIDERS: Admitting Provider Specialist; Referring Provider Family Medicine; Visit Provider Specialist
PROC: 10E0XZZ Delivery of Products of Conception, External Approach (ICD-10-PCS; CPT 58605; principal; 2020-04-10 13:45)
DX: O72.2 Delayed and secondary postpartum hemorrhage (principal); O60.14X0 Preterm labor third trimester with preterm delivery third trimester, not applicable or unspecified; Z37.0 Single live birth; Z3A.37 37 weeks gestation of pregnancy; Z01.812 Encounter for preprocedural laboratory examination; Z20.828 Contact with and (suspected) exposure to other viral communicable diseases; Z30.2 Encounter for sterilization
CPT/HCPCS: 01967; 36415; 58605; 59050; 59410; 81001; 85025; 86850; 86900; 86901; 87635; G0379; J0690; J1100; J1885; J2405; J2590; J2704; J3010; S0191

== ENCOUNTER → 2020-09-04 13:18 | Outpatient (CLI) | payer MEDICAID, SELFPAY ==
[2020-09-04 15:09] LABS: HCG Quantitative /Beta subunit < 2.4 mIU/mL
== END ==
PROVIDERS: Referring Provider Specialist; Visit Provider Specialist
DX: N91.2 Amenorrhea, unspecified (principal)
CPT/HCPCS: 36415; 84702

== ENCOUNTER → 2020-11-11 15:23 | Outpatient (CLI) | payer MEDICAID, SELFPAY ==
--- NOTE | 2020-11-11 | DI.RAD.S_ITS ---
PROCEDURE: XR LUMBAR SPINE 2-3V INDICATIONS: RIGHT LUMBAR RADICULOPATHY TECHNIQUE: 3 views of the lumbar spine were acquired. COMPARISON: None. FINDINGS: Bones: 5 [id number] vertebrae are present. There is normal bony alignment. No vertebral body compression fractures. No suspicious bony lesions. Soft tissues: Overlying bowel gas pattern is normal. No suspicious soft tissue calcifications. Cholecystectomy clips IMPRESSION: Normal lumbar spine series. Dictated by: Chintan Edwards RR Interpreted: Fabián Samuels MD on 11/11/2020 at 15:44 Transcribed by: TOMA on 11/11/2020 at 15:44 Approved by: Raffy Samuels M.D. on 11/17/2020 at 11:23
== END ==
PROVIDERS: Referring Provider Family Medicine; Visit Provider Family Medicine
DX: M54.16 Radiculopathy, lumbar region (principal)
CPT/HCPCS: 72100

== ENCOUNTER 2021-03-13 09:36 | Emergency (ER) | payer MEDICAID, SELFPAY ==
[2021-03-13 10:00] VITALS: BP 102/52; PULSE 82; RESP 20; TEMP 36.6; O2SAT 98; BMI 36.3
--- NOTE | 2021-03-13 10:33 | ED.BACK ---
HPI - Back Pain/Injury General Chief Complaint: Back Pain/Injury Stated Complaint: Pain up&down lt side of back x2 days Time Seen by Provider: 03/13/21 09:57 Source: patient Limitations: no limitations History of Present Illness HPI Narrative: The patient complains of left back and left flank pain for about 3 days. She has no cough or dyspnea. She has no abdominal pain. She denies dysuria hematuria. She has no history of kidney stones. She has a 25 lb taller, she suspects to injury while carrying her child. She has no lumbar discomfort, no numbness or weakness in her legs. Related Data Home Medications Medication Instructions Recorded Confirmed prenat.vits,matthias,swp-znen-ganlh 1 tab PO DAILY 09/18/19 09/11/20 Previous Rx's Medication Instructions Recorded ondansetron HCl 4 mg tablet 4 mg PO Q6H PRN #20 tab 09/25/19 ibuprofen 600 mg tablet 600 mg PO Q6H PRN #40 tab 03/13/21 methocarbamol 750 mg tablet 750 mg PO Q6H #40 tab 03/13/21 Allergies Allergy/AdvReac Type Severity Reaction Status Date / Time No Known Drug Allergies Allergy Verified 03/13/21 09:59 Review of Systems Constitutional Constitutional: Denies body ache(s), Denies fatigue, Denies fever(s), Denies headache(s), Denies malaise and Denies weakness ENT Ears, Nose, Mouth, and Throat: Denies headache(s) and Denies sore throat Cardiovascular Cardiovascular: Denies chest pain and Denies dyspnea Respiratory Respiratory: Denies cough and Denies dyspnea Gastrointestinal Gastrointestinal: Denies abdominal pain, Denies nausea and Denies vomiting Genitourinary Genitourinary: Denies dysuria Musculoskeletal Musculoskeletal: Reports as per HPI Integumentary/Breasts Skin/Breast: Denies lesions and Denies rash Neurologic Neurologic: Denies burning sensations, Denies headache(s) and Denies weakness Endocrine Endocrine: Denies fatigue Patient History Medical History History of multiple miscarriages Incomplete miscarriage (~03/2019) Loss of teeth due to extraction Sterilization (~04/10/20) (spontaneous vaginal delivery) Vaginal delivery (~04/10/20) Surgical History H/O dilation and curettage (~03/28/19) History of open reduction and internal fixation (ORIF) procedure (~2012) Hx laparoscopic cholecystectomy (~2003) Family History Father Diabetes mellitus Colon cancer Septicemia Mother Graves disease Nervous breakdown Alcohol abuse Grandmother Leukemia Septicemia Grandfather Stomach ulcer Grandfather No problems noted. Grandmother No problems noted. Sister Pancreatitis Social History marital status: unmarried,living together household members: significant other and children pets and animals: No education level: high school (Grade 11 - did not graduate) occupational status: unemployed current occupational exposures/hazards: No Previous occupational history: [employer] : quit due to Covid and heavy lifting and miscarriage history special tate needs: No Smoking Status: Never smoker second hand exposure: Yes (Adis Bruno) is a smoker) alcohol intake: former (pre- : occasional) substance use type: does not use Smoking Status: Never smoker Substance Use Type: does not use Exam Initial Vital Signs Initial Vital Signs: Vital Signs Temperature 97.8 F 03/13/21 10:00 Pulse Rate 82 03/13/21 10:00 Respiratory Rate 20 03/13/21 10:00 Blood Pressure 102/52 L 03/13/21 10:00 Pulse Oximetry 98 03/13/21 10:00 Const General: cooperative, healthy appearing and well developed [facility] Head: normocephalic and atraumatic Resp Auscultation: clear to auscultation bilaterally Cardio Rate: regular rate Rhythm: regular rhythm Heart Sounds: S1 normal, S2 normal and no murmurs GI Palpation: soft, No guarding, No mass and No tender Auscultation: normal bowel sounds General: No CVA tenderness Back/Spine/Pelvis Other: Tenderness in the left lower thoracic region, extending to the left flank. No tenderness over the T-spine or L-spine. Discomfort is increased with deep breathing, and rotational motion. Exam is consistent with muscle strain. Skin General: no rashes or lesions noted Neuro General: patient alert, patient awake, patient oriented x3 and no focal motor deficits Extrem General: normal to inspection, no pedal edema and no calf tenderness Course Course Course Narrative: A urine sample is clean. There is no suggestion of hematuria or pyuria. Exam would suggest a muscle strain. She was treated with Toradol, started on Robaxin. She is discharged on Motrin and Robaxin. Orders Ordered: Discontinued Medications Ketorolac Tromethamine (Ketorolac 30 Mg/Ml Vial) 30 mg IM NOW ONE Stop: 03/13/21 10:38 Last Admin: 03/13/21 10:48 Dose: 30 mg Documented by: Methocarbamol (Methocarbamol 500 Mg Tablet) 750 mg PO NOW ONE Stop: 03/13/21 10:38 Last Admin: 03/13/21 10:55 Dose: Not Given Documented by: Vital Signs Vital signs: Vital Signs - 8 hr 03/13/21 10:00 Temperature 97.8 F Pulse Rate 82 Respiratory Rate 20 Blood Pressure 102/52 L Pulse Oximetry 98 MDM - Back Pain/Injury Lab Data Labs: Point of Care Testing Test Results Negative Urine Dip Bedside Urine Glucose Negative Bedside Urine Bilirubin - Negative Bedside Urine Ketone - Negative Urine Specific [place] 1.025 Bedside Urine Occult Blood - Negative Bedside Urine pH 6.0 Bedside Urine Protein - Negative Bedside Urine Urobilinogen - Negative Bedside Urine Nitrite - Negative Bedside Urine Leukocytes - Negative Esterase Discharge Plan Departure Patient Disposition: Home Clinical Impression: Acute thoracic myofascial strain Instructions: DI for Back Strain or Sprain Activity Restrictions/Additional Instructions: Ibuprofen every 6 hours as needed for pain. Robaxin every 6 hours as needed for spasm. Take the medicines spontaneously. Her prescriptions have been forwarded to [facility]. Walk andstretch as tolerated. Recheck in 2-3 weeks if not improved. See her doctor, return if necessary. Prescriptions: New methocarbamol 750 mg tablet 750 mg PO Q6H Qty: 40 0RF ibuprofen 600 mg tablet 600 mg PO Q6H PRN (Reason: pain) Qty: 40 0RF No Action ondansetron HCl 4 mg tablet 4 mg PO Q6H PRN (Reason: nausea and vomiting) Qty: 20 3RF prenat.vits,matthias,qek-uzas-qonbs Tablet 1 tab PO DAILY 0RF Referrals: Miscellaneous,Doctor, [Primary Care Provider] -
[2021-03-13] MEDS: KETOROLAC 30 MG/ML VIAL IM (10:48)
== END 2021-03-13 11:16 | disposition home or self-care (01) ==
PROVIDERS: Emergency Provider Emergency Medicine
DX: S29.012A Strain of muscle and tendon of back wall of thorax, initial encounter (principal); X50.0XXA Overexertion from strenuous movement or load, initial encounter
CPT/HCPCS: 81003; 81025; 96372; 99283; J1885

== ENCOUNTER 2021-08-25 21:29 | Inpatient (IN) | payer MEDICAID, SELFPAY ==
[2021-08-25 21:32] VITALS: BP 116/57; PULSE 93; RESP 18; TEMP 36.6; O2SAT 99
[2021-08-26] VITALS (26 sets, daily range): BP systolic 89–119; BP diastolic 43–70; PULSE 72–101; RESP 9–18; TEMP 36.2–37.1; O2SAT 93–100; BMI 37.4; BMI 37.8
--- NOTE | 2021-08-26 00:27 | ED_ITS ---
HPI - Dental/Oral General Chief complaint: Dental/Oral Stated complaint: dental pain, cheek swelling Time Seen by Provider: 08/25/21 23:58 Source: patient Mode of arrival: Ambulatory Limitations: no limitations History of Present Illness HPI Narrative: This is a 35-year-old female with complaint of dental pain and cheek swelling which has been worsening. Patient states she is scheduled have all of her lower teeth pulled by a dentist today on the . She started developing pain at tooth 23 and 22 on Monday, 5 days ago. Patient states she was started on clindamycin as had doses starting on Monday the , she had 2 doses that day and 4 doses on yesterday. Patient has had increasing pain, redness and swelling over the lower jaw extending up to her lip and under the tongue. Patient denies fevers or chills. She denies any vomiting. No chest pain or shortness of breath. No change to voice. She denies any other GI or urinary symptoms. She is not any daily medications, no known drug allergies. She has been taking Tylenol and ibuprofen for pain which have not been adequate. No tobacco, no alc ohol, no illicit. Related Data Home Medications Medication Instructions Recorded Confirmed acetaminophen 500 mg tablet 1,000 mg PO Q6H PRN 08/25/21 08/25/21 (Acetaminophen Extra Strength) clindamycin HCl 300 mg capsule 300 mg PO Q6H 08/25/21 08/25/21 ibuprofen 400 mg tablet 400 mg PO Q6H PRN 08/25/21 08/25/21 Allergies Allergy/AdvReac Type Severity Reaction Status Date / Time No Known Drug Allergies Allergy Verified 03/13/21 09:59 Review of Systems Review of Systems ROS Unobtainable: All systems reviewed & are unremarkable except as noted in HPI and below Patient History Medical History History of multiple miscarriages Incomplete miscarriage (~03/2019) Loss of teeth due to extraction Sterilization (~04/10/20) (spontaneous vaginal delivery) Vaginal delivery (~04/10/20) Surgical History H/O dilation and curettage (~03/28/19) History of open reduction and internal fixation (ORIF) procedure (~2012) Hx laparoscopic cholecystectomy (~2003) Family History Father Diabetes mellitus Colon cancer Septicemia Mother Graves disease Nervous breakdown Alcohol abuse Grandmother Leukemia Septicemia Grandfather Stomach ulcer Grandfather No problems noted. Grandmother No problems noted. 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 HEENT: Atraumatic, pupils are equal round reactive to light, extraocular movements are intact, nares are clear, TMs are clear with no fluid, there is no conjunctival pallor. Throat is clear without any exudates, erythema, tonsillar enlargement or uvular deviation, patient has poor dentition her lower teeth. She has swelling of the anterior gum for tooth 23 and 22 but no fluctuance or clear fluid collection she has swelling and erythema over the outer left chin a nd left lateral lip. There does not appear to be involvement of her tongue it appears symmetrical and does not appear raised. She has normal speech, no hoarseness or stridor. No difficulty swallowing or handling secretions. I am able to palpate any fluctuance or induration. Patient is quite tender over the left lateral jaw. HEART: Regular rate and rhythm without murmur, clicks, rubs. LUNGS:Lungs clear to auscultation, no wheezes, rales, crackles, chest moves symmetrically ABD:bowel sounds normal, soft, non-tender, no guarding, rebound, rigidity, no masses noted, no hepatosplenomegaly MSCL: Non-tender, no muscle atrophy, muscles strength 5/5 upper and lower extremities, full range of motion, normal gait NEURO:CN 2-12 intact, sensation normal SKIN: see above. Initial Vital Signs Initial Vital Signs: Vital Signs Temperature 98 F 08/25/21 21:32 Pulse Rate 93 H 08/25/21 21:32 Respiratory Rate 18 08/25/21 21:32 Blood Pressure 116/57 L 08/25/21 21:32 Pulse Oximetry 99 08/25/21 21:32 Course Orders Ordered: ED Orders 08/26/21 00:58 BMP [Basic Metabolic Panel] Stat CBC Auto Diff [Complete Blood Count AUTO DIFF] Stat Lactate (Lactic Acid) Stat 08/26/21 00:59 CT soft tissue neck w con Stat 08/26/21 01:27 Blood Culture Stat 08/26/21 02:45 COVID19 -Nasal RAPID/Pre-Proc Stat Acetaminophen (Acetaminophen 325 Mg Tablet) 650 mg PO Q6HR PRN PRN Reason: Fever/Mild Pain (1-3) Ampicillin Sodium/Sulbactam (Sodium 3 gm/ Sodium Chloride) 100 mls @ 100 mls/hr IV Q6H MARY KAY Ketorolac Tromethamine (Ketorolac 30 Mg/Ml Vial) 15 mg IV Q6H PRN PRN Reason: Pain, Moderate (4-6) Stop: 08/29/21 04:59 Naloxone HCl (Naloxone 0.4 Mg/Ml Vial) 0.2 mg IV Q2MIN PRN PRN Reason: Opiate Reversal Ondansetron HCl (Ondansetron 4 Mg/2 Ml Inj) 4 mg IV Q6HR PRN PRN Reason: Nausea And Vomiting Oxycodone HCl (Oxycodone Ir 10 Mg Tablet) 10 mg PO Q4HR PRN PRN Reason: Pain, Severe (7-10) Discontinued Medications Dexamethasone (Dexamethasone 10 Mg/Ml Vial) 10 mg IV NOW ONE Stop: 08/26/21 00:59 Last Admin: 08/26/21 01:08 Dose: 10 mg Documented by: MYESHA Ampicillin Sodium/Sulbactam (Sodium 3 gm/ Sodium Chloride) 100 mls @ 100 mls/hr IV NOW ONE Stop: 08/26/21 00:59 Last Infusion: 08/26/21 02:47 Dose: 0 mls/hr Documented by: Admin: 08/26/21 01:29 Dose: 100 mls/hr Documented by: MYESHA Sodium Chloride (Normal Saline 0.9%) 1,000 mls @ 1,000 mls/hr IV BOLUS ONE Stop: 08/26/21 01:57 Last Infusion: 08/26/21 03:15 Dose: 0 mls/hr Documented by: Admin: 08/26/21 01:08 Dose: 1,000 mls/hr Documented by: MYESHA Ketorolac Tromethamine (Ketorolac 30 Mg/Ml Vial) 30 mg IV NOW ONE Stop: 08/26/21 00:59 Last Admin: 08/26/21 01:08 Dose: 30 mg Documented by: MYESHA Reevaluation(s) Reevaluation #1: Patient's pain has improved after medication. Swelling has stayed consistent without any rapid worsening. Patient labs and imaging were reviewed as well as recommendations from ENT and OMFS patient is agreeable to staying. Consultations Consultation #1: Dr. Leon, ENT-reviewed patient's findings today including periosteal abscess with bony cortical erosion concerning for osteomyelitis and focal lucencies suggesting an odontogenic abscesses. Recommends IV antibiotics for 24 hours and follow up with oral surgeon for debridement of the dental area. We did discuss Dr. Cain works locally as FS and if he is available would be an appropriate option locally. Time: 02:21 Consultation #2: Dr. Cain, [facility]. 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 Dr. Cain was recontacted to clarify if patient to be admitted to himself or hospitalist service. Dr. Cain states in the past patient's have always been admitted to hospitalist service when coming through ER. Time: 02:45 Consultation #3: MARS Hurtado, hospitalist discussed she accepts for observation. She did ask for us to clarify with Dr. Cain if he admits himself we did do this and re-contacted hospitalist. Gave recommendations from Dr. Cain including plan to evaluate imaging this morning for final decision about management of abscess and osteomyelitis changes. Vital Signs Vital signs: Vital Signs - 8 hr 08/25/21 21:32 Temperature 98 F Pulse Rate 93 H Respiratory Rate 18 Blood Pressure 116/57 L Pulse Oximetry 99 MDM - Dental/Oral Lab Data Result diagrams: 08/25/21 22:40 08/25/21 22:40 Labs: Lab Results 08/25/21 08/25/21 08/25/21 Range/Units 22:40 22:40 22:40 WBC 8.8 (4.5-11.0) X10^3/uL RBC 4.34 (4.0-5.2) X10^6/uL Hgb 11.7 L (12.0-16.0) g/dL Hct 35.4 L (36-46) % MCV 81.6 (80-100) fL MCH 27.0 (26-34) PG MCHC 33.1 (30-36) % RDW 13.9 (11.6-14.8) % Plt Count 338 (150-400) X10^3/uL Neut % (Auto) 60.8 (50-75) % Lymph % (Auto) 27.9 (25-40) % [place] % (Auto) 7.9 (3-14) % Eos % (Auto) 2.8 (2-4) % Baso % (Auto) 0.6 (0-2) % Neut # (Auto) 5300 (9039-7743) /uL Lymph # (Auto) 2400 (5880-5838) /uL [place] # (Auto) 700 (0-900) /uL Eos # (Auto) 200 (0-450) /uL Baso # (Auto) 100 (0-100) /uL Sodium 139 (137-145) mmol/L Potassium 3.5 (3.4-5.1) mmol/L Chloride 107 (98-107) mmol/L Carbon Dioxide 27 (22-32) mmol/L BUN 5 L (7-17) mg/dL Creatinine 0.66 (0.52-1.04) mg/dL Estimated GFR > 60 (>60) mL/min BUN/Creatinine Ratio 7.6 (6-22) Glucose 101 H (70-100) mg/dL Lactate 0.7 (0.7-2.1) mmol/L Calcium 7.9 L (8.4-10.2) mg/dL SARS-CoV-2 (PCR) (Negative) 08/26/21 Range/Units 02:45 WBC (4.5-11.0) X10^3/uL RBC (4.0-5.2) X10^6/uL Hgb (12.0-16.0) g/dL Hct (36-46) % MCV (80-100) fL MCH (26-34) PG MCHC (30-36) % RDW (11.6-14.8) % Plt Count (150-400) X10^3/uL Neut % (Auto) (50-75) % Lymph % (Auto) (25-40) % [place] % (Auto) (3-14) % Eos % (Auto) (2-4) % Baso % (Auto) (0-2) % Neut # (Auto) (9286-0468) /uL Lymph # (Auto) (4050-8276) /uL [place] # (Auto) (0-900) /uL Eos # (Auto) (0-450) /uL Baso # (Auto) (0-100) /uL Sodium (137-145) mmol/L Potassium (3.4-5.1) mmol/L Chloride (98-107) mmol/L Carbon Dioxide (22-32) mmol/L BUN (7-17) mg/dL Creatinine (0.52-1.04) mg/dL Estimated GFR (>60) mL/min BUN/Creatinine Ratio (6-22) Glucose (70-100) mg/dL Lactate (0.7-2.1) mmol/L Calcium (8.4-10.2) mg/dL SARS-CoV-2 (PCR) Negative (Negative) Imaging Data CT soft tissue face/neck: Radiologist's Impression: Launch?[address] [address] [address] Scan Report Signed Patient: Lisa Rodriguez MR#: [id number] : 1985 Acct:[id number] Age/Sex: 35 / F Date of Service: 08/26/21 Loc: ED Accession Number: [id number] ?? Procedure: CT soft tissue neck w con Ordering Provider: Shirley Alanis D.O. PROCEDURE:? CT SOFT TISSUE NECK W CON ? INDICATIONS:? swelling, lip/face, dental infxn. ? TECHNIQUE:? After the administration of intravenous contrast, 3.0 mm axial sections acquired from the sella to the aortic arch.? Additional oblique axial 3.0 mm sections acquired through the pharynx.? 3 mm thick coronal and sagittal reformats were generated.? For radiation dose reduction, the following was used:? automated exposure control.? ? COMPARISON:? None. ? FINDINGS:? Image quality:? Excellent.? ? Lymph nodes:? Multiple prominent cervical lymph nodes are demonstrated bilaterally.? These include bilateral submandibular nodes measuring up to 3.8 cm on the left.? There is a left level 2 node measuring up to 1.0 cm. ? Vessels:? Visualized vasculature appears patent.? ? Neck spaces:? The oropharynx, nasopharynx, and pharynx demonstrate no mucosal lesions.? The vocal cords, false vocal cords, pyriform sinuses, epiglottis, vallecula, and tongue base all appear normal.? Extramucosal spaces appear unremarkable.? ? Glands:? The parotid and submandibular glands appear within normal limits.? Thyroid gland demonstrates no discrete nodules. ? Miscellaneous:? There is soft tissue swelling with subcutaneous fat stranding demonstrated anterior to the mandible.? There is an associated loculated peripherally enhancing fluid collection along the left paracentral aspect of the mandibular body consistent with a periosteal abscess.? This measures up to approximately 1.3 x 1.1 x 1.6 cm.? There is associated mild bony erosion and periosteal thickening of the adjacent anterior cortex of the mandible.? This extends to the root of the adjacent left mandibular canine and left frontal mandibular incisors.? Visualized brain and orbits appear normal.? Lung apices appear clear.? ? Bones:? As noted above, there is bony erosion involving the left mandibular body anteriorly with adjacent periosteal reaction likely representing osteomyelitis.? There is associated lucency along the roots of the frontal teeth bilaterally suspicious for small developing is odontogenic abscesses.? Visualized sinuses demonstrate mild mucosal thickening within the bilateral maxillary sinuses with associated air-fluid levels.? Mastoid air cells are clear. ? ? IMPRESSION:? ? 1. Left paracentral periosteal abscess along the mandibular body anteriorly with associated bony cortical erosion.? Associated focal lucencies involving the left mandibular incisors and canine teeth are suggestive of odontogenic abscesses. ? 2. Mildly prominent cervical lymph nodes bilaterally are nonspecific but likely reactive. ? Dictated by: Bereket Anderson M.D. on 08/26/2021 at 2:02 ? ? Approved by: Bereket Anderson M.D. on 08/26/2021 at 2:10?? [facility] Narrative Medical decision making narrative: This is a 35-year-old female with only medical issues being obesity. Patient has poor dentition she states she has been having some increasing pain she was started on clindamycin and has had 6 doses total over approximately 30-36 hours. Patient's pain has been rapidly worsening and she had a significant increase in swelling of the face and lip in the last 12 hours. Patient does not appear to have any airway impingement while she is here in the department her swelling has not been continuing to worsen throughout her stay. Patient does not appear septic, labs are reassuring, patient has quite a bit of swelling of the left cheek and lip with no clear fluctuance on examination CT with contrast was obtai frederick and shows a periosteal abscess maximum size of 1.6 cm with several small areas of loculation surrounding as well as cortical erosion consistent with possible osteomyelitis. Patient received Unasyn IV, fluids as well as pain medication. Case was discussed with ENT who recommends oral surgeon for treatment and we discussed that Dr. Cain locally would be an appropriate option. I spoke with Dr. Cain who is happy to see the patient in the hospital he agrees with current choice of Unasyn for IV antibiotic he will review CT imaging in order to come to a final plan about how to drain the abscess and treat patient appropriately. Case was also discussed with hospitalist who accepts for observa tion. Discharge Plan Departure Patient Disposition: Admitted as Observation Clinical Impression: Acute osteomyelitis of mandible Admit Date/Time: 08/26/21 04:48 Admit Provider: Yuki Hurtado
--- NOTE | 2021-08-26 00:59 | DI.CT.S_ITS ---
PROCEDURE: CT SOFT TISSUE NECK W CON INDICATIONS: swelling, lip/face, dental infxn. TECHNIQUE: After the administration of intravenous contrast, 3.0 mm axial sections acquired from the sella to the aortic arch. Additional oblique axial 3.0 mm sections acquired through the pharynx. 3 mm thick coronal and sagittal reformats were generated. For radiation dose reduction, the following was used: automated exposure control. COMPARISON: None. FINDINGS: Image quality: Excellent. Lymph nodes: Multiple prominent cervical lymph nodes are demonstrated bilaterally. These include bilateral submandibular nodes measuring up to 3.8 cm on the left. There is a left level 2 node measuring up to 1.0 cm. Vessels: Visualized vasculature appears patent. Neck spaces: The oropharynx, nasopharynx, and pharynx demonstrate no mucosal lesions. The vocal cords, false vocal cords, pyriform sinuses, epiglottis, vallecula, and tongue base all appear normal. Extramucosal spaces appear unremarkable. Glands: The parotid and submandibular glands appear within normal limits. Thyroid gland demonstrates no discrete nodules. Miscellaneous: There is soft tissue swelling with subcutaneous fat stranding demonstrated anterior to the mandible. There is an associated loculated peripherally enhancing fluid collection along the left paracentral aspect of the mandibular body consistent with a periosteal abscess. This measures up to approximately 1.3 x 1.1 x 1.6 cm. There is associated mild bony erosion and periosteal thickening of the adjacent anterior cortex of the mandible. This extends to the root of the adjacent left mandibular canine and left frontal mandibular incisors. Visualized brain and orbits appear normal. Lung apices appear clear. Bones: As noted above, there is bony erosion involving the left mandibular body anteriorly with adjacent periosteal reaction likely representing osteomyelitis. There is associated lucency along the roots of the frontal teeth bilaterally suspicious for small developing is odontogenic abscesses. Visualized sinuses demonstrate mild mucosal thickening within the bilateral maxillary sinuses with associated air-fluid levels. Mastoid air cells are clear. IMPRESSION: 1. Left paracentral periosteal abscess along the mandibular body anteriorly with associated bony cortical erosion. Associated focal lucencies involving the left mandibular incisors and canine teeth are suggestive of odontogenic abscesses. 2. Mildly prominent cervical lymph nodes bilaterally are nonspecific but likely reactive. Dictated by: Bereket Anderson M.D. on 08/26/2021 at 2:02 Approved by: Bereket Anderson M.D. on 08/26/2021 at 2:10
[2021-08-26] MEDS: DEXAMETHASONE 10 MG/ML VIAL IV (01:08)
[2021-08-26] MEDS: SODIUM CHLORIDE 0.9% 1,000 ML 1000 ML IV ×2 (01:08→07:33)
[2021-08-26] MEDS: KETOROLAC 30 MG/ML VIAL IV (01:08)
[2021-08-26 01:14] LABS: Add Manual Diff / Slide Review NO; Basophils Absolute Auto 100 /uL (0-100); Basophils Percent Auto 0.6 % (0-2); Eosinophils Absolute Auto 200 /uL (0-450); Eosinophils Percent Auto 2.8 % (2-4); Hematocrit 35.4 % (36-46); Hemoglobin 11.7 g/dL (12.0-16.0); Lymphocytes Absolute Auto 2400 /uL (1100-4500); Lymphocytes Percent Auto 27.9 % (25-40); Mean Corpuscular HGB Conc 33.1 % (30-36); Mean Corpuscular Volume 81.6 fL (80-100); Monocytes Absolute Auto 700 /uL (0-900); Monocytes Percent Auto 7.9 % (3-14); Neutrophils Absolute Auto 5300 /uL (1500-7000); Neutrophils Percent Auto 60.8 % (50-75); Platelet Count 338 X10^3/uL (150-400); Red Blood Cell Count 4.34 X10^6/uL (4.0-5.2); Red Cell Distribution Width 13.9 % (11.6-14.8); White Blood Cell Count 8.8 X10^3/uL (4.5-11.0)
[2021-08-26 01:16] LABS: Lactate (Lactic Acid) 0.7 mmol/L (0.7-2.1)
[2021-08-26 01:17] LABS: BUN Creatinine Ratio 7.6 (6-22); Blood Urea Nitrogen 5 mg/dL (7-17); Calcium 7.9 mg/dL (8.4-10.2); Carbon Dioxide 27 mmol/L (22-32); Chloride 107 mmol/L (98-107); Estimated Glomerular Filt Rate > 60 mL/min (>60); Glucose 101 mg/dL (70-100); HEMOLYSIS < 15 (0-50); Potassium 3.5 mmol/L (3.4-5.1); Sodium 139 mmol/L (137-145)
[2021-08-26] MEDS: AMPICILLIN/SULBACTAM 3 GM 3 GM in SODIUM CHLORIDE 0.9% 100 ML IV ×5 (01:29→23:05)
[2021-08-26 03:05] LABS: COVID19 -Nasal RAPID Negative (Negative)
--- NOTE | 2021-08-26 06:10 | PM.HP.1 ---
History of Present Illness History of Present Illness Date Patient Seen: 08/26/21 Time Patient Seen: 06:11 Chief complaint: dental pain, cheek swelling Narrative: Lisa Rodriguez is a 35 y.o. female presented to the ED with jaw and dental pain and swelling. She was due for extraction of her lower teeth at her dentist's office today and is edentulous in the uppers. She started to develop lower jaw pain 4 days ago and was seen by her regular dentist who prescribed oral clindamycin. Over the past night she developed sudden swelling of her lower jaw involving her oropharanx and lip. She denies fever or chills, shortness of breath, difficulty swallowing, nausea or vomiting. She has been gradually having dental decay worsening with the of each of her four children and subsequent extractions. She denies a history of smoking or alcohol use. CT of the soft tissue of her neck indicated that she had left-sided paracentral periosteal abscess along the mandible with bony cortical erosion and identified odontogenic abscesses along the roots of the bilateral front teeth. Maxillofacial surgeon was notified and will see the patient in the am. She is afebrile, blood pressure 116/57, heart rate 93, respiratory rate 18, oxygen saturation 99% on room air, a do not of weight for her. WBC is slightly elevated at 11.4, RBC 4.37 she is slightly anemic with hemoglobin and hematocrit of 11.8 and 35.1, she does have a left shift of 10,000, admission glucose was 101, calcium 7.9 and are 6:00 a.m. chemistries are pending. She is COVID 19 PCR is negative. Patient History Medical History History of multiple miscarriages Incomplete miscarriage (~03/2019) Loss of teeth due to extraction Sterilization (~04/10/20) (spontaneous vaginal delivery) Vaginal delivery (~04/10/20) Surgical History H/O dilation and curettage (~03/28/19) History of open reduction and internal fixation (ORIF) procedure (~2012) Hx laparoscopic cholecystectomy (~2003) Family & Social History Family History Father Diabetes mellitus Colon cancer Septicemia Mother Graves disease Nervous breakdown Alcohol abuse Grandmother Leukemia Septicemia Grandfather Stomach ulcer Grandfather No problems noted. Grandmother No problems noted. Sister Pancreatitis Social History: household members significant other,children Safety & Behavioral: Feels Safe in Current Yes Environment Been Physically Hurt or No Threatened By a Person Tobacco & Substance use: Smoking Status Never smoker alcohol intake former alcohol intake frequency holiday/special occasion Substance Use Type does not use Meds Home Medications and Allergies Home Medications Medication Instructions Recorded Confirmed Type acetaminophen 500 mg tablet 1,000 mg PO Q6H PRN 08/25/21 08/25/21 History (Acetaminophen Extra Strength) clindamycin HCl 300 mg capsule 300 mg PO Q6H 08/25/21 08/25/21 History ibuprofen 400 mg tablet 400 mg PO Q6H PRN 08/25/21 08/25/21 History Allergies Allergy/AdvReac Type Severity Reaction Status Date / Time No Known Drug Allergies Allergy Verified 03/13/21 09:59 Review of Systems Review of Systems ROS: Yes All systems reviewed with the patient and are negative except as otherwise documented Exam Vital Signs (past 8 hours): Oxygen Delivery Method Room Air Narrative Exam Narrative: Gen: Alert, oriented, well-developed 35 y.o. female, NAD HEENT: normocephalic, atraumatic, conjunctiva clear, sclera non-icteric, significant upper and lower jaw and lip swelling, oral mucosa pale and swollen, edentulous upper gums Neck: supple, full ROM, no JVD, trachea is midline Resp: Lungs CTA, non-labored breathing CV: RRR, no murmur or rubs Abd: soft, non-tender, normoactive BTs Skin: no lesions or rashes, dry and intact Neuro: Alert and oriented X 4 w/no focal deficits. Speech clear and coherent. Extremities: moves all 4 extremities, is ambulatory, negative Ailin?s sign Psyche: normal mood and affect. Objective Labs Result Diagrams: 08/25/21 22:40 08/25/21 22:40 Labs: Laboratory Results - last 24 hr 08/25/21 08/25/21 08/25/21 22:40 22:40 22:40 WBC 8.8 RBC 4.34 Hgb 11.7 L Hct 35.4 L MCV 81.6 MCH 27.0 MCHC 33.1 RDW 13.9 Plt Count 338 Neut % (Auto) 60.8 Lymph % (Auto) 27.9 [place] % (Auto) 7.9 Eos % (Auto) 2.8 Baso % (Auto) 0.6 Neut # (Auto) 5300 Lymph # (Auto) 2400 [place] # (Auto) 700 Eos # (Auto) 200 Baso # (Auto) 100 Sodium 139 Potassium 3.5 Chloride 107 Carbon Dioxide 27 BUN 5 L Creatinine 0.66 Estimated GFR > 60 BUN/Creatinine Ratio 7.6 Glucose 101 H Lactate 0.7 Calcium 7.9 L SARS-CoV-2 (PCR) 08/26/21 02:45 WBC RBC Hgb Hct MCV MCH MCHC RDW Plt Count Neut % (Auto) Lymph % (Auto) [place] % (Auto) Eos % (Auto) Baso % (Auto) Neut # (Auto) Lymph # (Auto) [place] # (Auto) Eos # (Auto) Baso # (Auto) Sodium Potassium Chloride Carbon Dioxide BUN Creatinine Estimated GFR BUN/Creatinine Ratio Glucose Lactate Calcium SARS-CoV-2 (PCR) Negative Assessment & Plan Assessment & Plan narrative: Lisa Rodriguez is placed into observation for IV antibiotic treatment for suspected mandibular osteomylitis and multiple dental abscesses. 1. 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 Cain, Maxillofacial surgeon to see her in the am She is NPO VTE Prophylaxis: Wells risk score 0 Pharmacological VTE prophylaxis contraindicated pending surgery Bilateral SCDs Patient is placed into observation as her stay is not expected to exceed 2 midnights. FEN: IV fluids: NS at 100 ml/hour, diet: NPO, labs: CBC, C/BMP, liver enzymes Consultants Dr. Cain, care and involvement in the patient?s care is appreciated. Dispo: probable discharge to home Code status: Full Code as discussed with the patient who identifies her Adis Sweeney her surrogate and POA. [X] I have utilized all available immediate resources to obtain, update, or review of the patient's current medications COVID-19 COVID-19 status: Negative Result date/Date tested (Pos, Neg/Pending): 08/26/21 Quality VTE Deep Vein Thrombosis/Pulmonary Embolism Present on Admission: No MIPS - Admit I confirm the patient?s Advance Care Plan is present, Code status is documented, Surrogate decision maker is in patient?s record [If Yes, STOP here]: Yes MIPS - DC The patient has current or prior documentation of left ventricular ejection fraction (LVEF) less than 40%, or moderate or severely depressed left ventricular systolic function.: No
[2021-08-26 06:14] LABS: Add Manual Diff / Slide Review NO; Basophils Absolute Auto 0 /uL (0-100); Basophils Percent Auto 0.3 % (0-2); Eosinophils Absolute Auto 0 /uL (0-450); Eosinophils Percent Auto 0.1 % (2-4); Hematocrit 35.1 % (36-46); Hemoglobin 11.8 g/dL (12.0-16.0); Lymphocytes Absolute Auto 1100 /uL (1100-4500); Mean Corpuscular HGB Conc 33.7 % (30-36); Mean Corpuscular Hemoglobin 27.1 PG (26-34); Mean Corpuscular Volume 80.3 fL (80-100); Monocytes Absolute Auto 100 /uL (0-900); Monocytes Percent Auto 0.6 % (3-14); Neutrophils Absolute Auto 10100 /uL (1500-7000); Platelet Count 324 X10^3/uL (150-400); Red Blood Cell Count 4.37 X10^6/uL (4.0-5.2); White Blood Cell Count 11.4 X10^3/uL (4.5-11.0)
[2021-08-26 06:23] LABS: HEMOLYSIS < 15 (0-50)
[2021-08-26 06:24] LABS: BUN Creatinine Ratio 7.4 (6-22); Blood Urea Nitrogen 4 mg/dL (7-17); Carbon Dioxide 23 mmol/L (22-32); Chloride 111 mmol/L (98-107); Estimated Glomerular Filt Rate > 60 mL/min (>60); Glucose 132 mg/dL (70-100); Sodium 140 mmol/L (137-145)
[2021-08-26] MEDS: KETOROLAC 30 MG/ML VIAL 15 MG IV ×2 (06:24→13:07)
[2021-08-26] MEDS: SODIUM CHLORIDE 0.9% 1,000 ML 100 ML IV ×2 (06:48→13:25)
--- NOTE | 2021-08-26 20:24 | PM.HP.1 ---
History of Present Illness History of Present Illness Chief complaint: dental pain, cheek swelling Narrative: Patient with dental abscess from carious teeth. Rapid swelling that was not resonding to IV antibiotics. Patient presents to ER and was admistted after CT scan was showing a fluid collection in the anterior mandible. Patient History Medical History History of multiple miscarriages Incomplete miscarriage (~03/2019) Loss of teeth due to extraction Sterilization (~04/10/20) (spontaneous vaginal delivery) Vaginal delivery (~04/10/20) Surgical History H/O dilation and curettage (~03/28/19) History of open reduction and internal fixation (ORIF) procedure (~2012) Hx laparoscopic cholecystectomy (~2003) Family & Social History Family History Father Diabetes mellitus Colon cancer Septicemia Mother Graves disease Nervous breakdown Alcohol abuse Grandmother Leukemia Septicemia Grandfather Stomach ulcer Grandfather No problems noted. Grandmother No problems noted. Sister Pancreatitis Social History: household members significant other,children Prior Living Arrangements House Safety & Behavioral: Feels Safe in Current Yes Environment Been Physically Hurt or No Threatened By a Person Tobacco & Substance use: Smoking Status Never smoker alcohol intake former alcohol intake frequency holiday/special occasion Substance Use Type does not use Meds Home Medications and Allergies Home Medications Medication Instructions Recorded Confirmed Type acetaminophen 500 mg tablet 1,000 mg PO Q6H PRN 08/25/21 08/25/21 History (Acetaminophen Extra Strength) clindamycin HCl 300 mg capsule 300 mg PO Q6H 08/25/21 08/25/21 History ibuprofen 400 mg tablet 400 mg PO Q6H PRN 08/25/21 08/25/21 History Allergies Allergy/AdvReac Type Severity Reaction Status Date / Time No Known Drug Allergies Allergy Verified 03/13/21 09:59 Exam Vital Signs (past 8 hours): - 08/26/21 13:00 Temperature 97.2 F L Pulse Rate 79 Respiratory Rate 16 Blood Pressure 105/59 L Pulse Oximetry 99 Oxygen Delivery Method Room Air Oxygen Flow Rate 0 HENMT Mouth: oral mucosae normal, tongue normal and trismus Teeth and gingiva: dentures and poor dentition Throat: posterior oropharynx normal Other: no floor of the mouth elevation and swelling noted in the buccal vestibule. Teeth are tender to palpation. Teeth remaining are #20, 22-27. Chest Chest: normal inspection of the chest Cardio Rate: regular rate Rhythm: regular rhythm Objective Labs Result Diagrams: 08/26/21 06:01 08/26/21 06:01 Labs: Laboratory Results - last 24 hr 08/25/21 08/25/21 08/25/21 22:40 22:40 22:40 WBC 8.8 RBC 4.34 Hgb 11.7 L Hct 35.4 L MCV 81.6 MCH 27.0 MCHC 33.1 RDW 13.9 Plt Count 338 Neut % (Auto) 60.8 Lymph % (Auto) 27.9 [place] % (Auto) 7.9 Eos % (Auto) 2.8 Baso % (Auto) 0.6 Neut # (Auto) 5300 Lymph # (Auto) 2400 [place] # (Auto) 700 Eos # (Auto) 200 Baso # (Auto) 100 Sodium 139 Potassium 3.5 Chloride 107 Carbon Dioxide 27 BUN 5 L Creatinine 0.66 Estimated GFR > 60 BUN/Creatinine Ratio 7.6 Glucose 101 H Lactate 0.7 Calcium 7.9 L SARS-CoV-2 (PCR) 08/26/21 08/26/21 08/26/21 02:45 06:01 06:01 WBC 11.4 H RBC 4.37 Hgb 11.8 L Hct 35.1 L MCV 80.3 MCH 27.1 MCHC 33.7 RDW 14.0 Plt Count 324 Neut % (Auto) 89.0 H D Lymph % (Auto) 10.0 L [place] % (Auto) 0.6 L Eos % (Auto) 0.1 L Baso % (Auto) 0.3 Neut # (Auto) 71079 H Lymph # (Auto) 1100 [place] # (Auto) 100 Eos # (Auto) 0 Baso # (Auto) 0 Sodium 140 Potassium 4.0 Chloride 111 H Carbon Dioxide 23 BUN 4 L Creatinine 0.54 Estimated GFR > 60 BUN/Creatinine Ratio 7.4 Glucose 132 H Lactate Calcium 8.0 L SARS-CoV-2 (PCR) Negative Assessment & Plan Assessment & Plan narrative: Plan to drain abscess and remove remaining mandibular teeth under general anesthesia in the operating room. Time Spent With Patient Critical Care time: I spent a total of [] minutes of critical care time on this patient's care today; this time is exclusive of procedural time. Quality VTE Deep Vein Thrombosis/Pulmonary Embolism Present on Admission: No
--- NOTE | 2021-08-26 20:43 | PC.NURSE ---
Pt. off unit around 1900 to OR.
--- NOTE | 2021-08-26 21:13 | SUR.OPER ---
Supine on padded OR bed, head on gel donut, left arm secured on padded arm boards at <90 degrees abduction, right arm padded with gel pad and tucked at side, legs uncrossed, safety belt at thigh, tape over blanket over lower legs.
--- NOTE | 2021-08-26 21:42 | PM.OP.1 ---
Procedure & Clinicians Procedure: Extraction of remaining mandibular teeth: #20, 22,23,24,25,26 and 27, Incision and drainage of abscess present in the anterior mandible, debridement of the anterior mandible Same procedure as scheduled: Yes Indications: abscessed teeth, non-restorable teeth Surgeon: Toribio Whittaker Yes if Unassisted: Yes Anesthesia Type: General Operative Notes Findings: Necrotic bone anterior mandible around teeth 23 and 24 where the cortical bone had resorbed. Granulation tissue was present. Closure Type: non-primary Specimen(s): other Estimated Blood Loss (mL): 25 Procedure in detail: Patient was brought to operating room #3 at [facility]. Oral endotracheal tube intubation was performed. The patient was prepped and draped in a standard fashion for an oral surgery procedure. A moist throat pack was placed. Local anesthesia, 0.5% bupivicaine with epinephrine was infiltrated into the surgical site. A #15 scalpel blade was used to perform a sulcular incision around the teeth. A full thickness mucoperiosteal flap was elevated. The teeth were visualized and they were removed. Teeth 22-27 were dental forcep extractions as the teeth were mobile. Tooth #20 required bone removal to access the root. The root was then removed. The sockets were curetted out well and the wound was rinsed. Further flap reflection in the anterior mandible was performed where the fluid collection was noted on the CT scan. Two wound cultures were obtained of this area to send to the lab for cultures and sensitivities. It was noted that the cortical plate was resorbed around teeth 23,24 and 25. Further granulation tissue was curetted out. The wound was rinsed out well with normal saline. Once this was completed interrupted 3-0 CG suture was placed to reapproximate the soft tissues. The throat pack was removed. The oral cavity was suctioned dry. Gauze packs tied together with a tail sticking out of the oral cavity were palced on both sides of the mouth to aid in hemostasis. Patient was then turned over to the anesthesiologist for extubation and escort to the PACU. Complications: none Post-operative Condition: stable Disposition: PACU Plan for aftercare: Patient to return to the floor for intravenous antibiotics and pain management.
[2021-08-26] MEDS: BUPIVACAINE 0.5% (PF) 30 ML, EPINEPHrine 0.15 MG INJ (22:10)
[2021-08-26] MEDS: fentaNYL 100 MCG/2 ML INJ 50 MCG IV (22:13)
[2021-08-26] MEDS: OXYCODONE IR 5 MG TABLET PO (22:25)
[2021-08-26] MEDS: fentaNYL 100 MCG/2 ML INJ (23:05)
--- NOTE | 2021-08-26 23:11 | PC.NURSE ---
[id number] Patient returned from PACU, no bleeding noted in her lower gingiva. Denied pain upon returning carol to room 218. Will continue POC & monitor.
[2021-08-27 00:15] VITALS: BP 119/67; PULSE 79; O2SAT 97
[2021-08-27] MEDS: KETOROLAC 30 MG/ML VIAL 15 MG IV (00:42)
[2021-08-27 05:30] VITALS: BP 100/59; PULSE 69; RESP 16; TEMP 36.3; O2SAT 98
[2021-08-27] MEDS: AMPICILLIN/SULBACTAM 3 GM 3 GM in SODIUM CHLORIDE 0.9% 100 ML IV (05:31)
[2021-08-27 05:39] LABS: Add Manual Diff / Slide Review NO; Basophils Absolute Auto 0 /uL (0-100); Basophils Percent Auto 0.2 % (0-2); Eosinophils Absolute Auto 0 /uL (0-450); Hematocrit 30.1 % (36-46); Hemoglobin 10.1 g/dL (12.0-16.0); Lymphocytes Absolute Auto 1300 /uL (1100-4500); Lymphocytes Percent Auto 14.8 % (25-40); Mean Corpuscular HGB Conc 33.7 % (30-36); Mean Corpuscular Hemoglobin 27.1 PG (26-34); Mean Corpuscular Volume 80.6 fL (80-100); Monocytes Absolute Auto 200 /uL (0-900); Monocytes Percent Auto 1.7 % (3-14); Neutrophils Absolute Auto 7600 /uL (1500-7000); Neutrophils Percent Auto 83.3 % (50-75); Platelet Count 314 X10^3/uL (150-400); Red Blood Cell Count 3.74 X10^6/uL (4.0-5.2); Red Cell Distribution Width 14.1 % (11.6-14.8); White Blood Cell Count 9.1 X10^3/uL (4.5-11.0)
[2021-08-27 06:37] LABS: BUN Creatinine Ratio 10.5 (6-22); Blood Urea Nitrogen 6 mg/dL (7-17); Calcium 7.8 mg/dL (8.4-10.2); Carbon Dioxide 24 mmol/L (22-32); Chloride 110 mmol/L (98-107); Estimated Glomerular Filt Rate > 60 mL/min (>60); Glucose 140 mg/dL (70-100); HEMOLYSIS < 15 (0-50); Potassium 3.9 mmol/L (3.4-5.1); Sodium 139 mmol/L (137-145)
[2021-08-27] MEDS: SODIUM CHLORIDE 0.9% FLUSH 10 ML IV (06:53)
[2021-08-27 07:25] VITALS: BP 106/63; PULSE 72; RESP 18; TEMP 36.7; O2SAT 98
[2021-08-27] MEDS: AMOXICILLIN/CLAV 875/125 MG 1 TAB PO (08:56)
--- NOTE | 2021-08-27 09:15 | CM.DANOTE ---
DCP: Case received, EMR reviewed. Did not meet with patient, she was in insolation, then, surgery. Was able to obtain information from patient's chart in order to complete DCP assessment. Patient is a 35 year old female who admitted yesterday morning to the care of the hospitalist team. PCP: Kadie Cody at [facility]. Payer: confirmed: Medicaid. Patient came to the hospital via private vehicle secondary to having dental pain, and cheek swelling which had gotten worse. Patient had been scheduled to have her lower teeth pulled yesterday, started developing pain at tooth 23, and 22. Patient had already been on clindamycin. Oral surgeon, Dr. Cain, had recommended that patient be admitted with IV ABO, for abscess and infection of mandible. Patient had surgery and had her teeth extracted, and I&D and drainage of abscess of mandible. Have not met with patient, but according to notes, she resides with spouse in [place]. She is unemployed, and independent at baseline. It is unclear at this time how long she will need IV ABO. P: DCP to continue to follow for any needs, home with either oral, or if prolonged IV ABO are needed. Allyssa Mcnally RN/Associate Consulting Engineer Discharge Planning/Care Management Discharge Assessment Start: 08/27/21 09:14 Freq: Status: Active Protocol: Document 08/27/21 09:14 (Rec: 08/27/21 09:15 [id number]) Discharge Planning Assessment Assigned Head Correction Officer Allyssa Mcnally RN/Associate Consulting Engineer Advance Directives? No Advance Directives on File No History Provided By Patient,Medical Record Prior Living Arrangements House Household Members significant other,children Type of transporation used prior to Drives own vehicle admit Independent with ADL's Yes Is patient alert and oriented? Yes Comment Will have to see if she needs prolonged IV ABO. Discharge Plan Home Transportation Arrangement Spouse Referrals Initiated None needed Whiteboard Updated in Patient Room with No name and ext. # of Head Correction Officer Comment Patient is in isolation secondary to her bacterial infection, did not enter room. Review Status In Process Next Review Type Continued Stay Review Discharge Planning/Care Management CM Discharge Assessment Start: 08/27/21 09:14 Freq: Status: Active Protocol: Document 08/27/21 09:14 (Rec: 08/27/21 09:15 [id number]) Discharge Planning Assessment Assigned Head Correction Officer Allyssa Mcnally RN/Associate Consulting Engineer Advance Directives? No Advance Directives on File No History Provided By Patient,Medical Record Prior Living Arrangements House Household Members significant other,children Type of transporation used prior to Drives own vehicle admit Independent with ADL's Yes Is patient alert and oriented? Yes Comment Will have to see if she needs prolonged IV ABO. Discharge Plan Home Transportation Arrangement Spouse Referrals Initiated None needed Whiteboard Updated in Patient Room with No name and ext. # of Head Correction Officer Comment Patient is in isolation secondary to her bacterial infection, did not enter room. Review Status In Process Next Review Type Continued Stay Review
[2021-08-27 09:32] VITALS: O2SAT 98
--- NOTE | 2021-08-27 10:01 | PC.NURSE ---
pt given discharge instructions and IV was removed, pt independent denies pain. Nurse walked pt to entrance to meet her ride, pt left with all belongings.
--- NOTE | 2021-08-27 19:43 | PM.DS.1 ---
History of Present Illness History of Present Illness Chief complaint: dental pain, cheek swelling Narrative: Lisa Rodriguez is a 35 y.o. female presented to the ED with jaw and dental pain and swelling. She was due for extraction of her lower teeth at her dentist's office today and is edentulous in the uppers. She started to develop lower jaw pain 4 days ago and was seen by her regular dentist who prescribed oral clindamycin. Over the past night she developed sudden swelling of her lower jaw involving her oropharanx and lip. She denies fever or chills, shortness of breath, difficulty swallowing, nausea or vomiting. She has been gradually having dental decay worsening with the of each of her four children and subsequent extractions. She denies a history of smoking or alcohol use. CT of the soft tissue of her neck indicated that she had left-sided paracentral periosteal abscess along the mandible with bony cortical erosion and identified odontogenic abscesses along the roots of the bilateral front teeth. Maxillofacial surgeon was notified and will see the patient in the am.? She is afebrile, blood pressure 116/57, heart rate 93, respiratory rate 18, oxygen saturation 99% on room air, a do not of weight for her.? WBC is slightly elevated at 11.4, RBC 4.37 she is slightly anemic with hemoglobin and hematocrit of 11.8 and 35.1, she does have a left shift of 10,000, admission glucose was 101, calcium 7.9 and are 6:00 a.m. chemistries are pending.? She is COVID 19 PCR is negative. Discharge Providers Provider Date of admission: 08/26/21 04:48 Discharge Date: 08/27/21 Primary care physician: Kadie Greene MD Consults: 08/26/21 05:02 Consult to Physician Routine Comment: Consulting Provider: Toribio Cain Reason for consultation: osteomylitis, dental abscess Has provider been notified: Yes Discharge provider: Anthony Cherry MD Summary Hospital Course Discharge Diagnosis: 1. Abscess of anterior mandible 2. Dental abscesses Turf And Grounds Supervisor: Dr Toribio Cain Procedure & Clinicians Procedure: Extraction of remaining mandibular teeth: #20, 22,23,24,25,26 and 27, Incision and drainage of abscess present in the anterior mandible, debridement of the anterior mandible Same procedure as scheduled: Yes Indications: abscessed teeth, non-restorable teeth Surgeon: Toribio Cain Click Yes if Unassisted: Yes Anesthesia Type: General Operative Notes Findings: Necrotic bone anterior mandible around teeth 23 and 24 where the cortical bone had resorbed.? Granulation tissue was present. Closure Type: non-primary Specimen(s): other Estimated Blood Loss (mL): 25 Hospital Course: Patient was started on IV antibiotics. Dr. Cain consulted and performed surgery as above. She is being discharged on Augmentin and will follow-up with Dr. Cain in office. Culture g stain positive for GPC and culture pending at time of discharge. Status at Discharge Cognitive/behavioral status at discharge: oriented Functional status at discharge: independent ambulation Exam Vital Signs (past 8 hours): Oxygen Delivery Method Room Air Oxygen Flow Rate 0 Narrative Exam Narrative: General: Alert NAD HEENT: Mild mandibular swelling, no fluctuance Neck: No swelling or lymphadenopathy Objective Labs Result Diagrams: 08/27/21 05:12 08/27/21 05:12 Labs: Laboratory Results - last 24 hr 08/27/21 08/27/21 05:12 05:12 WBC 9.1 RBC 3.74 L Hgb 10.1 L Hct 30.1 L MCV 80.6 MCH 27.1 MCHC 33.7 RDW 14.1 Plt Count 314 Neut % (Auto) 83.3 H Lymph % (Auto) 14.8 L [place] % (Auto) 1.7 L Eos % (Auto) 0.0 L Baso % (Auto) 0.2 Neut # (Auto) 7600 H Lymph # (Auto) 1300 [place] # (Auto) 200 Eos # (Auto) 0 Baso # (Auto) 0 Sodium 139 Potassium 3.9 Chloride 110 H Carbon Dioxide 24 BUN 6 L Creatinine 0.57 Estimated GFR > 60 BUN/Creatinine Ratio 10.5 Glucose 140 H Calcium 7.8 L PFSH Medical History History of multiple miscarriages Incomplete miscarriage (~03/2019) Loss of teeth due to extraction Sterilization (~04/10/20) (spontaneous vaginal delivery) Vaginal delivery (~04/10/20) Surgical History H/O dilation and curettage (~03/28/19) History of open reduction and internal fixation (ORIF) procedure (~2012) Hx laparoscopic cholecystectomy (~2003) Family History Father Diabetes mellitus Colon cancer Septicemia Mother Graves disease Nervous breakdown Alcohol abuse Grandmother Leukemia Septicemia Grandfather Stomach ulcer Grandfather No problems noted. Grandmother No problems noted. 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 special tate needs: No Smoking Status: Never smoker second hand exposure: Yes (Adis : RENNY Bruno) is a smoker) alcohol intake: former substance use type: does not use Discharge Plan Discharge Plan Patient Disposition: Home Discharge orders & Medications Prescriptions: New amoxicillin-pot clavulanate 875-125 mg Tablet 1 tab PO BID Qty: 20 0RF Continued acetaminophen [Acetaminophen Extra Strength] 500 mg Tablet 1,000 mg PO Q6H PRN (Reason: Mild Pain (Scale Score 1-4)) 0RF ibuprofen 400 mg Tablet 400 mg PO Q6H PRN (Reason: Mild Pain (Scale Score 1-4)) 0RF Discontinued clindamycin HCl 300 mg Capsule 300 mg PO Q6H 0RF Follow up/Referrals: Toribio Cain DMD [Physician] - None (Call office to schedule hospital follow up appointment) Kadie Greene MD [Primary Care Provider] - Discharge Health Status Multidrug resistant organism: No MDRO Diet/Activity/Treatments Diet: Regular Discharge Data Primary Care Provider: Kadie Greene Quality VTE Deep Vein Thrombosis/Pulmonary Embolism Present on Admission: No
== END 2021-08-27 09:50 | disposition home or self-care (01) | DRG 138 ==
LOC: ED 08-26 04:40 → AC 08-26 06:44
PROVIDERS: Dentist Oral and Maxillofacial Surgery; Admitting Provider Nurse Practitioner Family; Emergency Provider Emergency Medicine; PCP Family Medicine; Referring Provider Emergency Medicine; Visit Provider Nurse Practitioner Family
PROC: 0CDXXZ1 Extraction of Lower Tooth, Multiple, External Approach (ICD-10-PCS; principal; 2021-08-26 19:00)
DX: M27.2 Inflammatory conditions of jaws (principal); K04.7 Periapical abscess without sinus; Z20.822 Contact with and (suspected) exposure to COVID-19
CPT/HCPCS: 36415; 70491; 80048; 83605; 85025; 87040; 87070; 87075; 87077; 87186; 87205; 87635; 96365; 96375; 99284; C9803; J0171; J0295; J1100; J1885; J2704; J3010; Q9967

== ENCOUNTER 2022-02-21 02:46 | Emergency (ER) | payer MEDICAID, SELFPAY ==
[2021-08-26 12:05] VITALS: BMI 37.4
[2022-02-21 02:54] VITALS: PULSE 100; O2SAT 98
[2022-02-21 02:55] VITALS: BP 128/57; PULSE 101; O2SAT 98
[2022-02-21 03:04] VITALS: O2SAT 100
[2022-02-21 03:08] VITALS: BP 128/57; PULSE 109; RESP 20; TEMP 36.4; O2SAT 97
--- NOTE | 2022-02-21 03:08 | DI.RAD.S_ITS ---
PROCEDURE: XR RIBS RT MIN 3V W CXR 1V INDICATIONS: pain, injury TECHNIQUE: 3 views of the right ribs were acquired, along with a single view chest. COMPARISON: None. FINDINGS: Surgical changes and devices: None. Bones and chest wall: No fractures or dislocations. No suspicious bony lesions. Overlying soft tissues appear unremarkable. Lungs and pleura: No pleural effusions or pneumothorax. Lungs appear clear. Mediastinum: Mediastinal contours appear normal. Heart size is normal. IMPRESSION: No displaced rib fractures. No significant discrepancy with the exhibitions and collections manager radiology preliminary report. Dictated by: Ana Robins M.D. on 02/21/2022 at 8:41 Approved by: Ana Robins M.D. on 02/21/2022 at 8:42
--- NOTE | 2022-02-21 04:08 | ED_ITS ---
HPI - Chest Pain General Chief Complaint: Chest Pain Stated Complaint: right side ribs hurt Time Seen by Provider: 02/21/22 03:12 Source: patient Mode of arrival: Ambulatory Limitations: no limitations History of Present Illness HPI narrative: This is a 36-year-old female who states no medical issues. Patient states over the last several days her youngest child who is approximately 30 lb and 3 ft in height has been having nightmares and will kick and feeling themselves around in bed next to the patient. Patient states that her ribs were hurting immediately after the 1st and she thought maybe she had bruising area but had 2 more episodes where she was kicked or child sort of ran into her in bed. She states pain increased since then. Patient states movement makes it worse. She denies any shortness of breath. No fevers or chills. No cold cough or congestion. Denies abdominal pain. No nausea or vomiting. No other GI or urinary symptoms. Patient has likes to avoid any pain medication even nonnarcotic. She states Tylenol makes her sleepy. She does sometimes take Advil. She has not take any tonight. Patient is accompanied by her . Related Data Home Medications Medication Instructions Recorded Confirmed acetaminophen 500 mg tablet 1,000 mg PO Q6H PRN Mild Pain 08/25/21 08/25/21 (Acetaminophen Extra Strength) (Scale Score 1-4) ibuprofen 400 mg tablet 400 mg PO Q6H PRN Mild Pain (Scale 08/25/21 08/25/21 Score 1-4) Previous Rx's Medication Instructions Recorded amoxicillin 875 mg-potassium 1 tab PO BID #20 tabs 08/27/21 clavulanate 125 mg tablet Allergies Allergy/AdvReac Type Severity Reaction Status Date / Time No Known Drug Allergies Allergy Verified 03/13/21 09:59 Review of Systems Review of Systems ROS Unobtainable: All systems reviewed & are unremarkable except as noted in HPI and below Patient History Medical History History of multiple miscarriages Incomplete miscarriage (~03/2019) Loss of teeth due to extraction Sterilization (~04/10/20) (spontaneous vaginal delivery) Vaginal delivery (~04/10/20) Surgical History H/O dilation and curettage (~03/28/19) History of open reduction and internal fixation (ORIF) procedure (~2012) Hx laparoscopic cholecystectomy (~2003) Family History Father Diabetes mellitus Colon cancer Septicemia Mother Graves disease Nervous breakdown Alcohol abuse Grandmother Leukemia Septicemia Grandfather Stomach ulcer Grandfather No problems noted. Grandmother No problems noted. 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 HEENT: Atraumatic, pupils are equal round reactive to light, extraocular movements are intact, nares are clear. HEART: Regular rate and rhythm without murmur, clicks, rubs. LUNGS:Lungs clear to auscultation, no wheezes, rales, crackles, chest moves symmetrically, patient has reproducible chest pain on the right lateral ribs underneath the breast. No obvious ecchymosis, no crepitus, no flail chest, no palpable deformity. ABD:bowel sounds normal, soft, non-tender, no guarding, rebound, rigidity, no masses noted, no hepatosplenomegaly :No CVA tenderness BACK: No cervical, thoracic or lumbar vertebral point tenderness. Patient clearly appears uncomfortable when sitting up in the bed, rotating flexing or side bending the torso.. Patient's gait is normal. Muscle strength is 5/5 in upper and lower extremities, normal range of motion of all 4 extremities. MSCL: Non-tender, no muscle atrophy, muscles strength 5/5 upper and lower extremities, full range of motion, normal gait NEURO:CN 2-12 intact, sensation normal SKIN: No ecchymosis, erythema or other skin changes. Initial Vital Signs Initial Vital Signs: Vital Signs Pulse Rate 100 H 02/21/22 02:54 Pulse Oximetry 98 02/21/22 02:54 Course Orders Ordered: ED Orders 02/21/22 03:08 XR ribs RT min 3V w CXR1V Stat Vital Signs Vital signs: Vital Signs - 8 hr 02/21/22 03:08 02/21/22 02:54 02/21/22 02:55 Temperature 97.5 F L Pulse Rate 109 H 100 H Respiratory Rate 20 Blood Pressure 128/57 L 128/57 L Pulse Oximetry 97 98 Oxygen Delivery Method Room Air 02/21/22 02:55 02/21/22 03:04 Temperature Pulse Rate 101 H Respiratory Rate Blood Pressure Pulse Oximetry 98 100 Oxygen Delivery Method MDM - Chest Pain Imaging Data Rib xray: My Impression: ? fx rib patient taken back for repeat views at rads request. no obvious fx noted on prelim xrays. Radiologist's Impression: Close Ribs X-Ray (Signed) Ana Robins - 02/21/22 Telemetry Strips 08/26/[address] (Signed) Bereket Anderson - 08/26/21 Lumbar Spine X-Ray (Signed) Shiv Edwards - 11/11/20 EKG Rpt. 01/15/20 Ultrasound (Signed) Kiran Duran - 12/03/19 Ultrasound (Signed) Kait Andrews - 02/25/19 Ultrasound (Signed) Mami Morris - 02/12/19 Launch?[address] [address] XRay Report Signed Patient: Lisa Rodriguez MR#: [id number] : 1985 Acct:[id number] Age/Sex: 36 / F Date of Service: 02/21/22 Loc: ED Accession Number: [id number] ?? Procedure: XR ribs RT min 3V w CXR1V Ordering Provider: Shirley Alanis D.O. PROCEDURE:? XR RIBS RT MIN 3V W CXR 1V ? INDICATIONS:? pain, injury ? TECHNIQUE:? 3 views of the right ribs were acquired, along with a single view chest.? ? COMPARISON:? None. ? FINDINGS:? ? Surgical changes and devices:? None.? ? Bones and chest wall:? No fractures or dislocations.? No suspicious bony lesions.? Overlying soft tissues appear unremarkable.? ? Lungs and pleura:? No pleural effusions or pneumothorax.? Lungs appear clear.? ? Mediastinum:? Mediastinal contours appear normal.? Heart size is normal.? ? IMPRESSION:? No displaced rib fractures. ? No significant discrepancy with the shift supervisor rn radiology preliminary report. ? ? ? Dictated by: Ana Robins M.D. on 02/21/2022 at 8:41 ? ? Approved by: Ana Robins M.D. on 02/21/2022 at 8:42?? MDM Narrative Medical decision making narrative: This is a 36-year-old female who presents with right-sided reproducible rib pain. Patient defers any pain medication here will take Tylenol if needed but prefers Advil. Discussed self splinting with her arm, pillows but no wrapping. Patient and I reviewed her prelim x-rays. I do not have her final report. Discharge Plan Departure Patient Disposition: Home Clinical Impression: Contusion of rib on right side Instructions: DI for Rib Fracture Activity Restrictions/Additional Instructions: Your xray final result is pending. There may be a rib fracture noted treatment is the same as a contusion. You can take Tylenol and/or Advil as needed for pain. You may use heat or ice to the affected area of helpful. Please return for rapidly worsening pain, new shortness of breath, fevers, persistent vomiting, increasing bruising or swelling, new abdominal pain, back or flank pain or other new or concerning changes. Prescriptions: No Action acetaminophen [Acetaminophen Extra Strength] 500 mg Tablet 1,000 mg PO Q6H PRN (Reason: Mild Pain (Scale Score 1-4)) ibuprofen 400 mg Tablet 400 mg PO Q6H PRN (Reason: Mild Pain (Scale Score 1-4)) amoxicillin-pot clavulanate 875-125 mg Tablet 1 tab PO BID Qty: 20 0RF Referrals: Kadie Greene MD [Primary Care Provider] - Stand Alone Forms: Work Release Note Visit Report Forms: Patient Portal/API
== END 2022-02-21 04:48 | disposition home or self-care (01) ==
PROVIDERS: Emergency Provider Emergency Medicine; PCP Family Medicine
DX: S20.211A Contusion of right front wall of thorax, initial encounter (principal); W51.XXXA Accidental striking against or bumped into by another person, initial encounter
CPT/HCPCS: 71101; 99283

== ENCOUNTER 2022-06-29 20:07 | Emergency (ER) | payer MEDICAID, SELFPAY ==
[2021-08-26 12:05] VITALS: BMI 37.4
[2022-06-29 20:33] VITALS: BP 126/74; PULSE 88; RESP 18; TEMP 36.9; O2SAT 99
[2022-06-29 21:31] LABS: Influenza A - CEPHEID Flu A NEGATIVE (NEGATIVE); Influenza B - CEPHEID Flu B NEGATIVE (NEGATIVE); Respiratory Syncytial Virus Negative (Negative)
[2022-06-29 21:41] LABS: COVID-19 CEPHEID 4-PLEX PCR Negative (Negative)
--- NOTE | 2022-06-29 22:12 | ED.GENADULT ---
HPI - General Adult General Chief complaint: Upper Respiratory Symptoms Stated complaint: sore throat Time Seen by Provider: 06/29/22 21:57 Source: patient Mode of arrival: Ambulatory History of Present Illness HPI narrative: 28-year-old female who is here for evaluation of approximately 4 days of a sore throat, sinus congestion, right ear pain. No cough. Has been taking Tylenol. She thought that when she laid down today that her throat was more swollen. Related Data Home Medications Medication Instructions Recorded Confirmed acetaminophen 500 mg tablet 1,000 mg PO Q6H PRN Mild Pain 08/25/21 08/25/21 (Acetaminophen Extra Strength) (Scale Score 1-4) ibuprofen 400 mg tablet 400 mg PO Q6H PRN Mild Pain (Scale 08/25/21 08/25/21 Score 1-4) Previous Rx's Medication Instructions Recorded amoxicillin 875 mg-potassium 1 tab PO BID #20 tabs 08/27/21 clavulanate 125 mg tablet Allergies Allergy/AdvReac Type Severity Reaction Status Date / Time No Known Drug Allergies Allergy Verified 03/13/21 09:59 Review of Systems Constitutional Constitutional: Reports system reviewed and no additional complaints, except as documented ENT Ears, Nose, Mouth, and Throat: Reports system reviewed and no additional complaints, except as documented Respiratory Respiratory: Reports system reviewed and no additional complaints, except as documented Integumentary/Breasts Skin/Breast: Reports system reviewed and no additional complaints, except as documented Patient History Medical History History of multiple miscarriages Incomplete miscarriage (~03/2019) Loss of teeth due to extraction Sterilization (~04/10/20) (spontaneous vaginal delivery) Vaginal delivery (~04/10/20) Surgical History H/O dilation and curettage (~03/28/19) History of open reduction and internal fixation (ORIF) procedure (~2012) Hx laparoscopic cholecystectomy (~2003) Family History Father Diabetes mellitus Colon cancer Septicemia Mother Graves disease Nervous breakdown Alcohol abuse Grandmother Leukemia Septicemia Grandfather Stomach ulcer Grandfather No problems noted. Grandmother No problems noted. 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 special tate needs: No Smoking Status: Never smoker second hand exposure: Yes (Adis : RENNY Bruno) is a smoker) alcohol intake: former substance use type: does not use Smoking Status: Never smoker alcohol intake frequency: holidays/special occasions only Substance Use Type: does not use Exam Initial Vital Signs Initial Vital Signs: Vital Signs Temperature 98.5 F 06/29/22 20:33 Pulse Rate 88 06/29/22 20:33 Respiratory Rate 18 06/29/22 20:33 Blood Pressure 126/74 06/29/22 20:33 Pulse Oximetry 99 06/29/22 20:33 Oxygen Delivery Method Room Air 06/29/22 20:33 Const General: cooperative, comfortable and No ill appearing HENMO Head: normal to inspection and normocephalic Mouth: oral mucosae normal and moist mucous membranes Resp Effort & Inspection: normal respiratory effort Auscultation: clear to auscultation bilaterally Cardio Rate: regular rate Skin General: no rashes or lesions noted Neuro General: patient alert and moves all extremities Extrem General: capillary refill normal Course Orders Ordered: ED Orders 06/29/22 20:40 Covid-19 + FLU A/B + RSV - PCR Stat Throat Culture Stat Discontinued Medications Dexamethasone (Dexamethasone 10 Mg/Ml Vial) 10 mg PO NOW ONE Stop: 06/29/22 22:22 Last Admin: 06/29/22 22:32 Dose: 10 mg Documented By: AMU Vital Signs Vital signs: Vital Signs - 8 hr 06/29/22 20:33 Temperature 98.5 F Pulse Rate 88 Respiratory Rate 18 Blood Pressure 126/74 Pulse Oximetry 99 Oxygen Delivery Method Room Air Medical Decision Making Lab Data Lab results reviewed: Yes I reviewed the patient's lab results. Labs: Lab Results 06/29/22 Range/Units 20:40 SARS-CoV-2 (PCR) Negative (Negative) Influenza A (RT-PCR) Flu a negative (NEGATIVE) Influenza B (RT-PCR) Flu b negative (NEGATIVE) RSV (PCR) Negative (Negative) Point of Care Testing Rapid Strep A Negative Point of care testing: Point of Care Testing Rapid Strep A Negative MDM Narrative Medical decision making narrative: No respiratory distress. COVID and flu and rapid strep are negative. Lungs are clear. No indication for antibiotics. Will give a dose of steroids try to help with the swelling in the symptoms. Discharge patient home with instructions to continue to take Tylenol and ibuprofen. She was given return precautions. She expressed understanding agreement. Discharge Plan Departure Patient Disposition: Home Clinical Impression: Pharyngitis Instructions: Sore Throat Activity Restrictions/Additional Instructions: You can continue to take Tylenol/ibuprofen for any discomfort. Be sure that you are staying hydrated. I suspect that your symptoms will improve in the next couple days. Return to the emergency department for any new or worsening symptoms. There was a throat culture pending at the time of your discharge and we will contact you if we do need to start any antibiotics based on this result Prescriptions: No Action acetaminophen [Acetaminophen Extra Strength] 500 mg Tablet 1,000 mg PO Q6H PRN (Reason: Mild Pain (Scale Score 1-4)) ibuprofen 400 mg Tablet 400 mg PO Q6H PRN (Reason: Mild Pain (Scale Score 1-4)) amoxicillin-pot clavulanate 875-125 mg Tablet 1 tab PO BID Qty: 20 0RF Referrals: Kadie Greene MD [Primary Care Provider] - Stand Alone Forms: Patient Portal/API
[2022-06-29] MEDS: DEXAMETHASONE 10 MG/ML VIAL PO (22:32)
== END 2022-06-29 22:36 | disposition home or self-care (01) ==
PROVIDERS: Emergency Provider Emergency Medicine; PCP Family Medicine
DX: J02.9 Acute pharyngitis, unspecified (principal); Z20.822 Contact with and (suspected) exposure to COVID-19
CPT/HCPCS: 0241U; 87070; 87880; 99283; J1100

== ENCOUNTER 2022-08-21 07:24 | Emergency (ER) | payer MEDICAID, SELFPAY ==
[2021-08-26 12:05] VITALS: BMI 37.4
[2022-08-21] VITALS (12 sets, daily range): BP systolic 101–108; BP diastolic 50–68; PULSE 94–106; RESP 16; TEMP 36.1; O2SAT 98–100; BMI 34.3
--- NOTE | 2022-08-21 07:45 | DI.CT.S_ITS ---
PROCEDURE: CT ABDOMEN PELVIS W CON INDICATIONS: Generalized abdominal pain with nausea and diarrhea TECHNIQUE: After the administration of IV contrast, axial sections were acquired from the lung bases to the pubic symphysis. Coronal and sagittal reformats were performed. For radiation dose reduction, the following was used: automated exposure control, adjustment of mA and/or kV according to patient size. COMPARISON: None. FINDINGS: Image quality: Excellent. Lung bases: Unremarkable. Heart: No significant findings. ABDOMEN: Liver: Unremarkable. Gallbladder: Removed. Biliary ducts: Unremarkable. Pancreas: Unremarkable. Spleen: Unremarkable. Adrenal Glands: Unremarkable. Kidneys and Ureters: Unremarkable. Stomach and Bowel: Liquid stool is seen throughout the colon, including at the rectum. No significant colonic wall thickening can be seen. No dilated loops of small bowel are seen. No significant gastric abnormality is seen. A normal appendix is seen. Peritoneum: No abnormal intraperitoneal fluid. No free air. Ventral Wall: No hernia. Abdominal Nodes: No retroperitoneal or mesenteric adenopathy by size criteria. Vessels: Aorta and inferior vena cava are normal in size. PELVIS: Pelvic Organs: The uterus appears normal for age. No adnexal masses are seen. Bladder: Unremarkable. Pelvic Nodes: No enlarged lymph nodes. Miscellaneous: No inguinal hernias are seen. Bones: Unremarkable. IMPRESSION: Liquid stool can be seen within the colon, including at the rectum, which is consistent with the given clinical history of diarrhea. No colonic wall thickening or other significant colonic abnormality is seen. No dilated loops of small bowel. Additional findings: Cholecystectomy Normal appendix Dictated by: Kiran Duran M.D. on 08/21/2022 at 8:37 Approved by: Kiran Duran M.D. on 08/21/2022 at 8:39
--- NOTE | 2022-08-21 07:47 | ED.GENADULT ---
HPI - General Adult General Chief complaint: Abdominal Pain Stated complaint: severe abd pain, nausea, diarrhea Time Seen by Provider: 08/21/22 07:35 Source: patient Mode of arrival: Ambulatory Limitations: no limitations History of Present Illness HPI narrative: Patient is a 36-year-old female who is here for evaluation of abdominal discomfort. The pain that she is having now has been present for the past 24-48 hours. It is associated with some nausea but no vomiting. She is also having some diarrhea. The diarrhea/urination/eating does not change the discomfort at all. She has had this discomfort off and on for the past several months. She is not been evaluated for it. She is here today because she states that this episode has lasted longer than previous. She has had her gallbladder removed. No fevers. No chest pain or shortness of breath. No dysuria. No blood in her urine or blood in her stool. She is not tried anything for her symptoms prior to. Related Data Home Medications Medication Instructions Recorded Confirmed acetaminophen 500 mg tablet 1,000 mg PO Q6H PRN Mild Pain 08/25/21 08/25/21 (Acetaminophen Extra Strength) (Scale Score 1-4) ibuprofen 400 mg tablet 400 mg PO Q6H PRN Mild Pain (Scale 08/25/21 08/25/21 Score 1-4) Previous Rx's Medication Instructions Recorded amoxicillin 875 mg-potassium 1 tab PO BID #20 tabs 08/27/21 clavulanate 125 mg tablet ondansetron 4 mg disintegrating 4 mg PO Q6H PRN nausea and 08/21/22 tablet vomiting #10 tabs Allergies Allergy/AdvReac Type Severity Reaction Status Date / Time No Known Drug Allergies Allergy Verified 08/21/22 07:32 Review of Systems Constitutional Constitutional: Reports system reviewed and no additional complaints, except as documented Cardiovascular Cardiovascular: Reports system reviewed and no additional complaints, except as documented Respiratory Respiratory: Reports system reviewed and no additional complaints, except as documented Gastrointestinal Gastrointestinal: Reports system reviewed and no additional complaints, except as documented Genitourinary Genitourinary: Reports system reviewed and no additional complaints, except as documented Integumentary/Breasts Skin/Breast: Reports system reviewed and no additional complaints, except as documented Hematologic/Lymphatic On Anticoagulants: No Patient History Medical History History of multiple miscarriages Incomplete miscarriage (~03/2019) Loss of teeth due to extraction Sterilization (~04/10/20) (spontaneous vaginal delivery) Vaginal delivery (~04/10/20) Surgical History H/O dilation and curettage (~03/28/19) History of open reduction and internal fixation (ORIF) procedure (~2012) Hx laparoscopic cholecystectomy (~2003) Family History Father Diabetes mellitus Colon cancer Septicemia Mother Graves disease Nervous breakdown Alcohol abuse Grandmother Leukemia Septicemia Grandfather Stomach ulcer Grandfather No problems noted. Grandmother No problems noted. 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 special tate needs: No Smoking Status: Never smoker second hand exposure: Yes (Adis Bruno) is a smoker) alcohol intake: former substance use type: does not use Smoking Status: Never smoker alcohol intake frequency: holidays/special occasions only Substance Use Type: does not use Exam Initial Vital Signs Initial Vital Signs: Vital Signs Temperature 97 F L 08/21/22 07:30 Pulse Rate 99 H 08/21/22 07:30 Respiratory Rate 16 08/21/22 07:30 Blood Pressure 107/68 08/21/22 07:30 Pulse Oximetry 99 08/21/22 07:30 Oxygen Delivery Method Room Air 08/21/22 07:30 Const General: cooperative, comfortable and No ill appearing HENMT Head: normal to inspection and normocephalic Resp Effort & Inspection: normal respiratory effort Auscultation: clear to auscultation bilaterally Cardio Rate: regular rate Rhythm: regular rhythm GI Inspection: normal to inspection Palpation: soft, No firm, No guarding, No rigid and tender (Generalized) Skin General: no rashes or lesions noted Neuro General: patient alert, patient awake and moves all extremities Extrem General: normal to inspection and capillary refill normal Course Orders Ordered: ED Orders 08/21/22 07:33 EKG-12 Lead Stat 08/21/22 07:45 CT abdomen pelvis w con Stat 08/21/22 07:50 Complete Blood Count AUTO DIFF Stat Comprehensive Metabolic Panel Stat Lipase Stat Test Serum,Qual Stat 08/21/22 08:55 Urine Culture Stat Urine Microscopic Stat Ondansetron HCl (Ondansetron 4 Mg Odt) 4 mg PO NOW PRN PRN Reason: Nausea And Vomiting Ondansetron HCl (Ondansetron 4 Mg/2 Ml Inj) 4 mg IV NOW PRN PRN Reason: Nausea And Vomiting Last Admin: 08/21/22 07:58 Dose: 4 mg Documented By: SAL Discontinued Medications Sodium Chloride (Normal Saline 0.9%) 1,000 mls @ 1,000 mls/hr IV BOLUS ONE Stop: 08/21/22 08:44 Last Admin: 08/21/22 07:58 Dose: 1,000 mls/hr Documented By: SAL Ketorolac Tromethamine (Ketorolac 30 Mg/Ml Vial) 30 mg IV NOW ONE Stop: 08/21/22 08:03 Last Admin: 08/21/22 08:13 Dose: 30 mg Documented By: SAL Vital Signs Vital signs: Vital Signs - 8 hr 08/21/22 07:30 08/21/22 07:30 08/21/22 07:30 Temperature 97 F L Pulse Rate 99 H 94 H Respiratory Rate 16 Blood Pressure 107/68 107/68 Pulse Oximetry 99 99 Oxygen Delivery Method Room Air 08/21/22 07:41 08/21/22 07:41 08/21/22 07:43 Temperature Pulse Rate 103 H 98 H Respiratory Rate Blood Pressure 106/50 L Pulse Oximetry 100 100 Oxygen Delivery Method 08/21/22 07:43 08/21/22 08:00 08/21/22 08:02 Temperature Pulse Rate 98 H 96 H Respiratory Rate Blood Pressure 108/52 L Pulse Oximetry 100 100 Oxygen Delivery Method 08/21/22 08:02 Temperature Pulse Rate Respiratory Rate Blood Pressure 105/51 L Pulse Oximetry Oxygen Delivery Method Medical Decision Making Lab Data Lab results reviewed: Yes I reviewed the patient's lab results. 08/21/22 07:50 08/21/22 07:50 Labs: Lab Results 08/21/22 08/21/22 08/21/22 Range/Units 07:50 07:50 07:50 WBC 10.2 (4.5-11.0) X10^3/uL RBC 4.65 (4.0-5.2) X10^6/uL Hgb 13.0 (12.0-16.0) g/dL Hct 38.2 (36-46) % MCV 82.0 (80-100) fL MCH 27.9 (26-34) PG MCHC 34.0 (30-36) % RDW 14.8 (11.6-14.8) % Plt Count 319 (150-400) X10^3/uL Neut % (Auto) 68.0 (50-75) % Lymph % (Auto) 20.2 L (25-40) % [place] % (Auto) 6.1 (3-14) % Eos % (Auto) 5.0 H (2-4) % Baso % (Auto) 0.7 (0-2) % Neut # (Auto) 6900 (2362-5591) /uL Lymph # (Auto) 2100 (6303-3165) /uL [place] # (Auto) 600 (0-900) /uL Eos # (Auto) 500 H (0-450) /uL Baso # (Auto) 100 (0-100) /uL Sodium 136 L (137-145) mmol/L Potassium 3.8 (3.4-5.1) mmol/L Chloride 104 (98-107) mmol/L Carbon Dioxide 25 (22-32) mmol/L BUN 6 L (7-17) mg/dL Creatinine 0.64 (0.52-1.04) mg/dL Estimated GFR > 60 (>60) mL/min BUN/Creatinine Ratio 9.4 (6-22) Glucose 88 (70-100) mg/dL Calcium 8.5 (8.4-10.2) mg/dL Total Bilirubin 0.9 (0.2-1.3) mg/dL AST 67 H (14-36) IU/L ALT 54 H (<35) IU/L Alkaline Phosphatase 237 H (38-126) U/L Total Protein 9.5 H (6.3-8.2) g/dL Albumin 4.3 (3.5-5.0) g/dL Globulin 5.2 H (1.7-4.1) g/dL Albumin/Globulin Ratio 0.8 L (1.0-2.8) Lipase 85 (23-300) U/L Serum , Qual Negative (Negative) Urine RBC (0-5/HPF) Urine WBC (0-5/HPF) Ur Squamous Epith Cells (0-5/HPF) Urine Bacteria (None) Ur Culture Indicated? 08/21/22 Range/Units 08:55 WBC (4.5-11.0) X10^3/uL RBC (4.0-5.2) X10^6/uL Hgb (12.0-16.0) g/dL Hct (36-46) % MCV (80-100) fL MCH (26-34) PG MCHC (30-36) % RDW (11.6-14.8) % Plt Count (150-400) X10^3/uL Neut % (Auto) (50-75) % Lymph % (Auto) (25-40) % [place] % (Auto) (3-14) % Eos % (Auto) (2-4) % Baso % (Auto) (0-2) % Neut # (Auto) (6135-6102) /uL Lymph # (Auto) (2429-7297) /uL [place] # (Auto) (0-900) /uL Eos # (Auto) (0-450) /uL Baso # (Auto) (0-100) /uL Sodium (137-145) mmol/L Potassium (3.4-5.1) mmol/L Chloride (98-107) mmol/L Carbon Dioxide (22-32) mmol/L BUN (7-17) mg/dL Creatinine (0.52-1.04) mg/dL Estimated GFR (>60) mL/min BUN/Creatinine Ratio (6-22) Glucose (70-100) mg/dL Calcium (8.4-10.2) mg/dL Total Bilirubin (0.2-1.3) mg/dL AST (14-36) IU/L ALT (<35) IU/L Alkaline Phosphatase (38-126) U/L Total Protein (6.3-8.2) g/dL Albumin (3.5-5.0) g/dL Globulin (1.7-4.1) g/dL Albumin/Globulin Ratio (1.0-2.8) Lipase (23-300) U/L Serum , Qual (Negative) Urine RBC 1-5/hpf (0-5/HPF) Urine WBC 5-10/hpf H (0-5/HPF) Ur Squamous Epith Cells 10-30 /hpf H D (0-5/HPF) Urine Bacteria Moderate (10-30) H (None) Ur Culture Indicated? Specimen cultured Urine Dip Bedside Urine Glucose Negative Bedside Urine Bilirubin - Negative Bedside Urine Ketone - Negative Urine Specific [place] 1.010 Bedside Urine Occult Blood +/- Bedside Urine pH 6.0 Bedside Urine Protein - Negative Bedside Urine Urobilinogen - Negative Bedside Urine Nitrite - Negative Bedside Urine Leukocytes + 70 Esterase Point of care testing: Urine Dip Bedside Urine Glucose Negative Bedside Urine Bilirubin - Negative Bedside Urine Ketone - Negative Urine Specific [place] 1.010 Bedside Urine Occult Blood +/- Bedside Urine pH 6.0 Bedside Urine Protein - Negative Bedside Urine Urobilinogen - Negative Bedside Urine Nitrite - Negative Bedside Urine Leukocytes + [address] scan - abdomen/pelvis: Radiologist's Impression: PROCEDURE:? CT ABDOMEN PELVIS W CON ? INDICATIONS:? Generalized abdominal pain with nausea and diarrhea ? TECHNIQUE:? After the administration of IV contrast, axial sections were acquired from the lung bases to the pubic symphysis.? Coronal and sagittal reformats were performed.? For radiation dose reduction, the following was used:? automated exposure control, adjustment of mA and/or kV according to patient size. ? COMPARISON:? None. ? FINDINGS:? Image quality:? Excellent.? ? Lung bases:? Unremarkable.? ? Heart:? No significant findings. ? ? ABDOMEN: Liver:? Unremarkable.? ? Gallbladder:? Removed.? ? Biliary ducts:? Unremarkable.? ? Pancreas:? Unremarkable.? ? Spleen:? Unremarkable.? ? Adrenal Glands:? Unremarkable.? ? Kidneys and Ureters:? Unremarkable.? ? ? Stomach and Bowel:? Liquid stool is seen throughout the colon, including at the rectum. ? ?No significant colonic wall thickening can be seen. No dilated loops of small bowel are seen. No significant gastric abnormality is seen. A normal appendix is seen. Peritoneum:? No abnormal intraperitoneal fluid.? No free air.? ? Ventral Wall: ? No hernia.? Abdominal Nodes:? No retroperitoneal or mesenteric adenopathy by size criteria.? Vessels:? Aorta and inferior vena cava are normal in size.? ? PELVIS: Pelvic Organs: The uterus appears normal for age.? No adnexal masses are seen.? Bladder:? Unremarkable.? ? Pelvic Nodes: No enlarged lymph nodes.? Miscellaneous: No inguinal hernias are seen. ? ? ? Bones:? Unremarkable.? IMPRESSION:? ? Liquid stool can be seen within the colon, including at the rectum, which is consistent with the given clinical history of diarrhea. ? No colonic wall thickening or other significant colonic abnormality is seen. ? No dilated loops of small bowel. ? Additional findings:? Cholecystectomy Normal appendix ECG Data Attestation: I personally reviewed and interpreted this ECG as follows: Interpretation: Sinus rhythm Ventricular rate of 102 Normal axis Normal QRS Normal QTC No ST T wave changes MDM Narrative Medical decision making narrative: Patient has been having symptoms off and on for several months. Her labs today are relatively unremarkable. She is not having specific urinary symptoms. Will wait for the culture before we treat with any antibiotics. Her CT scan shows liquid stool in the colon which is consistent with her diarrhea. I did inform her that this could be what is causing her abdominal discomfort. There is no indication for surgical intervention. Informed the patient that she needs to talk with her primary doctor about a referral to see Gastroenterology. She was given return precautions. She expressed understanding and agreement. Discharge Plan Departure Patient Disposition: Home Clinical Impression: Abdominal pain, Diarrhea Instructions: Diarrhea Activity Restrictions/Additional Instructions: I do recommend that you increase your fluid intake. Use the nausea medication as needed. You may still experienced some diarrhea over the next couple days. Contact your primary doctor for follow-up to discuss the indications for referral to see a facility manager histology. Prescriptions: New ondansetron 4 mg tablet,disintegrating 4 mg PO Q6H PRN (Reason: nausea and vomiting) Qty: 10 0RF No Action acetaminophen [Acetaminophen Extra Strength] 500 mg Tablet 1,000 mg PO Q6H PRN (Reason: Mild Pain (Scale Score 1-4)) ibuprofen 400 mg Tablet 400 mg PO Q6H PRN (Reason: Mild Pain (Scale Score 1-4)) amoxicillin-pot clavulanate 875-125 mg Tablet 1 tab PO BID Qty: 20 0RF Referrals: Kadie Greene MD [Primary Care Provider] - Stand Alone Forms: Patient Portal/API
[2022-08-21] MEDS: ONDANSETRON 4 MG/2 ML INJ IV (07:58)
[2022-08-21] MEDS: SODIUM CHLORIDE 0.9% 1,000 ML 1000 ML IV (07:58)
[2022-08-21 08:00] LABS: Add Manual Diff / Slide Review NO; Basophils Absolute Auto 100 /uL (0-100); Basophils Percent Auto 0.7 % (0-2); Eosinophils Absolute Auto 500 /uL (0-450); Hematocrit 38.2 % (36-46); Lymphocytes Absolute Auto 2100 /uL (1100-4500); Lymphocytes Percent Auto 20.2 % (25-40); Mean Corpuscular Hemoglobin 27.9 PG (26-34); Monocytes Absolute Auto 600 /uL (0-900); Monocytes Percent Auto 6.1 % (3-14); Neutrophils Absolute Auto 6900 /uL (1500-7000); Platelet Count 319 X10^3/uL (150-400); Red Blood Cell Count 4.65 X10^6/uL (4.0-5.2); Red Cell Distribution Width 14.8 % (11.6-14.8); White Blood Cell Count 10.2 X10^3/uL (4.5-11.0)
[2022-08-21] MEDS: KETOROLAC 30 MG/ML VIAL IV (08:13)
[2022-08-21 08:17] LABS: Alanine Aminotransferase 54 IU/L (<35); Albumin 4.3 g/dL (3.5-5.0); Albumin Globulin Ratio 0.8 (1.0-2.8); Alkaline Phosphatase 237 U/L (38-126); Aspartate Aminotransferase 67 IU/L (14-36); BUN Creatinine Ratio 9.4 (6-22); Bilirubin Total 0.9 mg/dL (0.2-1.3); Blood Urea Nitrogen 6 mg/dL (7-17); Calcium 8.5 mg/dL (8.4-10.2); Carbon Dioxide 25 mmol/L (22-32); Chloride 104 mmol/L (98-107); Estimated Glomerular Filt Rate > 60 mL/min (>60); Globulin 5.2 g/dL (1.7-4.1); Glucose 88 mg/dL (70-100); Lipase 85 U/L (23-300); Potassium 3.8 mmol/L (3.4-5.1); Sodium 136 mmol/L (137-145); Total Protein 9.5 g/dL (6.3-8.2)
[2022-08-21 08:18] LABS: HEMOLYSIS 73 (0-50)
[2022-08-21 08:19] LABS: Pregnancy Test Serum,Qual Negative (Negative)
[2022-08-21 09:23] LABS: RBC Urine 1-5/HPF (0-5/HPF); Squamous Epithelial Cell Urine 10-30 /HPF (0-5/HPF); WBC Urine 5-10/HPF (0-5/HPF)
[2022-08-21 09:24] LABS: Bacteria Urine Moderate (10-30); Culture Indicated Urine Specimen Cultured
== END 2022-08-21 10:22 | disposition home or self-care (01) ==
PROVIDERS: Emergency Provider Emergency Medicine; PCP Family Medicine
DX: R10.9 Unspecified abdominal pain (principal); R11.0 Nausea; R19.7 Diarrhea, unspecified
CPT/HCPCS: 36415; 74177; 80053; 81003; 81015; 83690; 84703; 85025; 87077; 87086; 87186; 93005; 96361; 96374; 96375; 99284; J1885; J2405; Q9967

== ENCOUNTER 2022-12-15 03:15 | Emergency (ER) | payer MEDICAID, SELFPAY ==
[2021-08-26 12:05] VITALS: BMI 37.4
--- NOTE | 2022-12-15 03:15 | DI.RAD.S_ITS ---
PROCEDURE: XR CHEST 1V INDICATIONS: SOB TECHNIQUE: One view of the chest was acquired. COMPARISON: None. FINDINGS: Surgical changes and devices: None. Lungs and pleura: Submaximal inspiration. Patchy bilateral infiltrates versus atelectasis. No pleural effusions or pneumothorax. Mediastinum: Mediastinal contours appear normal. Heart size is normal. Bones and chest wall: No suspicious bony lesions. Overlying soft tissues appear unremarkable. IMPRESSION: Patchy bilateral infiltrates versus atelectasis. Comment: Progress films are recommended until clear. Comment: Final report is concordant with preliminary interpretation provided by [facility]. Dictated by: Andrés Caicedo M.D. on 12/15/2022 at 8:04 Approved by: Andrés Caicedo M.D. on 12/15/2022 at 8:05
--- NOTE | 2022-12-15 03:20 | ED.GENADULT ---
HPI - General Adult General Chief complaint: Shortness of Breath/Dyspnea Stated complaint: SOB Time Seen by Provider: 12/15/22 03:15 Source: patient and family Mode of arrival: EMS Limitations: no limitations History of Present Illness HPI narrative: Patient is a 37-year-old female. Brought in by EMS for evaluation of shortness of breath. She does admit to drinking alcohol this evening. She was with her family. Apparently she started coughing and then complaining of shortness of breath. She does have history of asthma but has not had any issues with that recently. The time of my exam she was no longer short of breath. No chest pain. No nausea or vomiting. Related Data Home Medications Medication Instructions Recorded Confirmed acetaminophen 500 mg tablet 1,000 mg PO Q6H PRN Mild Pain 08/25/21 08/25/21 (Acetaminophen Extra Strength) (Scale Score 1-4) ibuprofen 400 mg tablet 400 mg PO Q6H PRN Mild Pain (Scale 08/25/21 08/25/21 Score 1-4) Previous Rx's Medication Instructions Recorded amoxicillin 875 mg-potassium 1 tab PO BID #20 tabs 08/27/21 clavulanate 125 mg tablet ondansetron 4 mg disintegrating 4 mg PO Q6H PRN nausea and 08/21/22 tablet vomiting #10 tabs cephalexin 500 mg capsule 500 mg PO BID #14 caps 08/23/22 Allergies Allergy/AdvReac Type Severity Reaction Status Date / Time No Known Drug Allergies Allergy Verified 08/21/22 07:32 Review of Systems Constitutional Constitutional: Reports system reviewed and no additional complaints, except as documented Cardiovascular Cardiovascular: Reports system reviewed and no additional complaints, except as documented Respiratory Respiratory: Reports system reviewed and no additional complaints, except as documented Gastrointestinal Gastrointestinal: Reports system reviewed and no additional complaints, except as documented Integumentary/Breasts Skin/Breast: Reports system reviewed and no additional complaints, except as documented Patient History Medical History History of multiple miscarriages Incomplete miscarriage (~03/2019) Loss of teeth due to extraction Sterilization (~04/10/20) (spontaneous vaginal delivery) Vaginal delivery (~04/10/20) Surgical History H/O dilation and curettage (~03/28/19) History of open reduction and internal fixation (ORIF) procedure (~2012) Hx laparoscopic cholecystectomy (~2003) Family History Father Diabetes mellitus Colon cancer Septicemia Mother Graves disease Nervous breakdown Alcohol abuse Grandmother Leukemia Septicemia Grandfather Stomach ulcer Grandfather No problems noted. Grandmother No problems noted. 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 special tate needs: No Smoking Status: Never smoker second hand exposure: Yes (Adis : RENNY Bruno) is a smoker) alcohol intake: former substance use type: does not use Smoking Status: Never smoker alcohol intake frequency: holidays/special occasions only Substance Use Type: does not use Exam Initial Vital Signs Initial Vital Signs: Vital Signs Temperature 98.2 F 12/15/22 03:33 Pulse Rate 115 H 12/15/22 03:33 Respiratory Rate 20 12/15/22 03:33 Blood Pressure 137/101 H 12/15/22 03:33 Pulse Oximetry 95 12/15/22 03:33 Oxygen Delivery Method Room Air 12/15/22 03:33 Const General: cooperative and No ill appearing HENMT Head: normal to inspection and normocephalic Resp Effort & Inspection: normal respiratory effort Auscultation: clear to auscultation bilaterally Cardio Rate: regular rate Rhythm: regular rhythm GI Inspection: normal to inspection and non-distended Skin General: no rashes or lesions noted Neuro General: patient alert, patient awake and moves all extremities Course Orders Ordered: ED Orders 12/15/22 03:15 XR chest 1V Stat Vital Signs Vital signs: Vital Signs - 8 hr 12/15/22 03:33 Temperature 98.2 F Pulse Rate 115 H Respiratory Rate 20 Blood Pressure 137/101 H Pulse Oximetry 95 Oxygen Delivery Method Room Air Medical Decision Making Imaging Data Chest x-ray: Attestation: I personally reviewed and interpreted this imaging study as follows: My Impression: No acute pathology MDM Narrative Medical decision making narrative: Patient has had a resolution of symptoms prior to arrival here in the ER. She is not hypoxic. Afebrile. Not tachypneic. No abnormal lung sounds. Patient clinically does not have pneumonia. She is no chest pain. Will discharge patient home with return precautions. Discharge Plan Departure Patient Disposition: Home Clinical Impression: Shortness of breath Activity Restrictions/Additional Instructions: Recommend that you continue to take all of your medications as directed. Return to the emergency department for new symptoms. Prescriptions: No Action acetaminophen [Acetaminophen Extra Strength] 500 mg Tablet 1,000 mg PO Q6H PRN (Reason: Mild Pain (Scale Score 1-4)) ibuprofen 400 mg Tablet 400 mg PO Q6H PRN (Reason: Mild Pain (Scale Score 1-4)) amoxicillin-pot clavulanate 875-125 mg Tablet 1 tab PO BID Qty: 20 0RF ondansetron 4 mg tablet,disintegrating 4 mg PO Q6H PRN (Reason: nausea and vomiting) Qty: 10 0RF cephalexin 500 mg capsule 500 mg PO BID Qty: 14 0RF Referrals: Kadie Greene MD [Primary Care Provider] - Stand Alone Forms: Patient Portal/API
[2022-12-15 03:33] VITALS: BP 137/101; PULSE 115; RESP 20; TEMP 36.8; O2SAT 95; BMI 37.8
[2022-12-15 03:45] VITALS: BP 137/91; PULSE 92; RESP 18; TEMP 36.4; O2SAT 97
== END 2022-12-15 04:03 | disposition home or self-care (01) ==
PROVIDERS: Emergency Provider Emergency Medicine; PCP Family Medicine
DX: R06.02 Shortness of breath (principal)
CPT/HCPCS: 71045; 99283

== ENCOUNTER 2023-07-17 20:49 | Emergency (ER) | payer MEDICAID, SELFPAY ==
[2021-08-26 12:05] VITALS: BMI 37.4
--- NOTE | 2023-07-17 20:56 | DI.RAD.S_ITS ---
PROCEDURE: XR CHEST 1V INDICATIONS: cough with SOB TECHNIQUE: One view of the chest was acquired. COMPARISON: [facility], CR, XR CHEST 1V, 12/15/2022, 3:12. FINDINGS: Surgical changes and devices: None. Lungs and pleura: Lungs are clear. No pleural effusions or pneumothorax. Mediastinum: Mediastinal contours appear normal. Heart size is normal. Bones and chest wall: No suspicious bony lesions. Overlying soft tissues appear unremarkable. IMPRESSION: No acute cardiopulmonary abnormality is seen. Dictated by: Zac Martinez M.D. on 07/17/2023 at 22:04 Approved by: Zac Martinez M.D. on 07/17/2023 at 22:05
[2023-07-17 20:57] VITALS: BP 117/55; PULSE 100; RESP 18; TEMP 36.7; O2SAT 100; BMI 39.1
[2023-07-17 21:12] VITALS: PULSE 88; O2SAT 98
[2023-07-17 21:30] VITALS: BP 93/44; PULSE 104; O2SAT 99
[2023-07-17 21:33] VITALS: BP 102/52; PULSE 90; O2SAT 99
[2023-07-17 21:49] LABS: Influenza A - CEPHEID Flu A NEGATIVE (NEGATIVE); Influenza B - CEPHEID Flu B NEGATIVE (NEGATIVE); Respiratory Syncytial Virus Negative (Negative)
[2023-07-17 21:53] LABS: COVID-19 CEPHEID 4-PLEX PCR Negative (Negative)
[2023-07-17 22:00] VITALS: BP 103/55; PULSE 85; O2SAT 97
--- NOTE | 2023-07-17 22:23 | ED.GENADULT ---
HPI - General Adult General Chief complaint: Upper Respiratory Symptoms Stated complaint: hurts to breathe/cough/nose runny/green Time Seen by Provider: 07/17/23 20:56 Source: patient and family Mode of arrival: Ambulatory History of Present Illness HPI narrative: 37-year-old female who is here for evaluation of several days/week of cough, pain in the right side of her chest with breathing, runny nose and green sputum. She was also having left knee pain after an injury 1 year ago. No fevers. Has an inhaler that has been prescribed her but she has not filled that prescription. Related Data Home Medications Medication Instructions Recorded Confirmed acetaminophen 500 mg tablet 1,000 mg PO Q6H PRN Mild Pain 08/25/21 08/25/21 (Acetaminophen Extra Strength) (Scale Score 1-4) ibuprofen 400 mg tablet 400 mg PO Q6H PRN Mild Pain (Scale 08/25/21 08/25/21 Score 1-4) Previous Rx's Medication Instructions Recorded amoxicillin 875 mg-potassium 1 tab PO BID #20 tabs 08/27/21 clavulanate 125 mg tablet ondansetron 4 mg disintegrating 4 mg PO Q6H PRN nausea and 08/21/22 tablet vomiting #10 tabs cephalexin 500 mg capsule 500 mg PO BID #14 caps 08/23/22 Allergies Allergy/AdvReac Type Severity Reaction Status Date / Time No Known Drug Allergies Allergy Verified 07/17/23 20:57 Review of Systems Constitutional Constitutional: Reports system reviewed and no additional complaints, except as documented ENT Ears, Nose, Mouth, and Throat: Reports system reviewed and no additional complaints, except as documented Cardiovascular Cardiovascular: Reports system reviewed and no additional complaints, except as documented Respiratory Respiratory: Reports system reviewed and no additional complaints, except as documented Musculoskeletal Musculoskeletal: Reports system reviewed and no additional complaints, except as documented Integumentary/Breasts Skin/Breast: Reports system reviewed and no additional complaints, except as documented Patient History Medical History Sterilization (~04/10/20) Vaginal delivery (~04/10/20) Loss of teeth due to extraction (spontaneous vaginal delivery) Incomplete miscarriage (~03/2019) History of multiple miscarriages Surgical History H/O dilation and curettage (~03/28/19) History of open reduction and internal fixation (ORIF) procedure (~2012) Hx laparoscopic cholecystectomy (~2003) Family History Father Diabetes mellitus Colon cancer Septicemia Mother Graves disease Nervous breakdown Alcohol abuse Grandmother Leukemia Septicemia Grandfather Stomach ulcer Grandfather No problems noted. Grandmother No problems noted. Sister Pancreatitis Social History marital status: unmarried,living together household members: significant other and children pets and animals: No education level: high school (Grade 11 - did not graduate) occupational status: unemployed current occupational exposures/hazards: No Previous occupational history: [employer] medical : quit due to Covid and heavy lifting and miscarriage history special tate needs: No Smoking Status: Never smoker second hand exposure: Yes (Adis Marizol TATEMara Keithnegar) is a smoker) alcohol intake: former substance use type: does not use Smoking Status: Never smoker alcohol intake frequency: holidays/special occasions only Substance Use Type: does not use Exam Initial Vital Signs Initial Vital Signs: Vital Signs Temperature 98.1 F 07/17/23 20:57 Pulse Rate 100 H 07/17/23 20:57 Respiratory Rate 18 07/17/23 20:57 Blood Pressure 117/55 L 07/17/23 20:57 Pulse Oximetry 100 07/17/23 20:57 Oxygen Delivery Method Room Air 07/17/23 20:57 Const General: cooperative, comfortable and No ill appearing [facility] Head: normal to inspection and normocephalic Resp Effort & Inspection: normal respiratory effort Auscultation: clear to auscultation bilaterally Cardio Rate: regular rate Rhythm: regular rhythm Neuro General: patient alert and patient awake Extrem Other: Some discomfort palpation of the medial joint line of the left knee. Quadriceps patellar tendon intact. Hamstrings intact. Course Orders Ordered: ED Orders 07/17/23 20:56 XR chest 1V Stat 07/17/23 21:08 Covid-19 + FLU A/B + RSV - PCR Stat Vital Signs Vital signs: Vital Signs - 8 hr 07/17/23 20:57 07/17/23 21:12 07/17/23 21:30 Temperature 98.1 F Pulse Rate 100 H 88 Respiratory Rate 18 Blood Pressure 117/55 L 93/44 L Pulse Oximetry 100 98 Oxygen Delivery Method Room Air Room Air 07/17/23 21:30 07/17/23 21:33 07/17/23 21:33 Temperature Pulse Rate 104 H 90 Respiratory Rate Blood Pressure 102/52 L Pulse Oximetry 99 99 Oxygen Delivery Method Room Air 07/17/23 22:00 07/17/23 22:00 07/17/23 22:30 Temperature Pulse Rate 85 80 Respiratory Rate Blood Pressure 103/55 L Pulse Oximetry 97 98 Oxygen Delivery Method Room Air 07/17/23 22:30 Temperature Pulse Rate Respiratory Rate Blood Pressure 100/63 Pulse Oximetry Oxygen Delivery Method Medical Decision Making Lab Data Lab results reviewed: Yes I reviewed the patient's lab results. Labs: Lab Results 07/17/23 Range/Units 21:08 SARS-CoV-2 (PCR) Negative (Negative) Influenza A (RT-PCR) Flu a negative (NEGATIVE) Influenza B (RT-PCR) Flu b negative (NEGATIVE) RSV (PCR) Negative (Negative) Imaging Data Chest x-ray: Radiologist's Impression: PROCEDURE: XR CHEST 1V INDICATIONS: cough with SOB TECHNIQUE: One view of the chest was acquired. COMPARISON: [facility], , XR CHEST 1V, 12/15/2022, 3:12. FINDINGS: Surgical changes and devices: None. Lungs and pleura: Lungs are clear. No pleural effusions or pneumothorax. Mediastinum: Mediastinal contours appear normal. Heart size is normal. Bones and chest wall: No suspicious bony lesions. Overlying soft tissues appear unremarkable. IMPRESSION: No acute cardiopulmonary abnormality is seen. MDM Narrative Medical decision making narrative: COVID/flu/RSV chest x-ray are all negative. Lungs are clear. Not hypoxic. Not wheezing. No indication for antibiotics. Low suspicion for ACS. Discussed this with the patient. Advised that she fill the prescription for the albuterol that she has been prescribed in the past. She does have tenderness along the medial joint line of the left knee. Her injury was 1 year ago. No indication for radiologic studies. Advised that she talk with her primary provider as she may need further evaluation to include physical therapy or maybe even an MRI for possible meniscus injury. She was given return precautions. She expressed understanding and agreement with plan. Discharge Plan Departure Patient Disposition: Home Clinical Impression: Cough, Knee pain Instructions: Cough Activity Restrictions/Additional Instructions: You can fill the inhaler that you were given earlier this year and take it as needed for wheezing. I also recommend that you talk with your primary care doctor about further evaluation of your knee pain as you may need an MRI. Return to the emergency department for new symptoms. Prescriptions: No Action acetaminophen [Acetaminophen Extra Strength] 500 mg Tablet 1,000 mg PO Q6H PRN (Reason: Mild Pain (Scale Score 1-4)) ibuprofen 400 mg Tablet 400 mg PO Q6H PRN (Reason: Mild Pain (Scale Score 1-4)) amoxicillin-pot clavulanate 875-125 mg Tablet 1 tab PO BID Qty: 20 0RF ondansetron 4 mg tablet,disintegrating 4 mg PO Q6H PRN (Reason: nausea and vomiting) Qty: 10 0RF cephalexin 500 mg capsule 500 mg PO BID Qty: 14 0RF Referrals: Kadie Greene MD [Primary Care Provider] - Stand Alone Forms: Patient Portal/API
[2023-07-17 22:30] VITALS: BP 100/63; PULSE 80; O2SAT 98
== END 2023-07-17 22:38 | disposition home or self-care (01) ==
PROVIDERS: Emergency Provider Emergency Medicine; PCP Family Medicine
DX: R05.9 Cough, unspecified (principal); M25.562 Pain in left knee
CPT/HCPCS: 0241U; 71045; 99282; 99283

== ENCOUNTER 2024-09-06 15:15 | Emergency (ER) | payer MEDICAID, SELFPAY ==
[2021-08-26 12:05] VITALS: BMI 37.4
[2024-09-06] VITALS (66 sets, daily range): BP systolic 78–122; BP diastolic 39–71; PULSE 78–109; RESP 16–24; TEMP 36.1; O2SAT 92–100; BMI 37.4
--- NOTE | 2024-09-06 15:19 | EKG_ITS ---
[address] [address] Test Date: 2024-09-06 Pat Name: Lisa Rodriguez Department: Room: Gender: Female Teaching Specialists: ROMAINE : 1985 Requested By: Order Number: [id number] Reading MD: Boris Marrero MD Measurements Intervals [place] Rate: 86 P: 51 NM: 152 QRS: 30 QRSD: 76 T: 33 QT: 390 QTc: 466 Interpretive Statements Normal sinus rhythm Electronically Signed On 09-06-2024 16:37:26 PDT by Boris Marrero MD
--- NOTE | 2024-09-06 15:40 | DI.RAD.S_ITS ---
PROCEDURE: XR CHEST 1V INDICATIONS: Chest Pain TECHNIQUE: One view of the chest was acquired. COMPARISON: [facility], CR, XR CHEST 1V, 07/17/2023, 21:06. [facility], CR, XR CHEST 1V, 12/15/2022, 3:12. FINDINGS: Surgical changes and devices: None. Lungs and pleura: Lungs are clear. No pleural effusions or pneumothorax. Mediastinum: Mediastinal contours appear normal. Heart size is normal. Bones and chest wall: No suspicious bony lesions. Overlying soft tissues appear unremarkable. IMPRESSION: No acute cardiopulmonary abnormality is seen. Dictated by: Zac Martinez M.D. on 09/06/2024 at 16:12 Approved by: Zac Martinez M.D. on 09/06/2024 at 16:13
[2024-09-06 15:49] LABS: INR 1.1 (0.9-1.3); Prothrombin Time 12.7 SECONDS (9.4-12.5)
[2024-09-06 15:52] LABS: PTT Partial Thromboplastin Tim 32 SECONDS (25.1-36.5)
[2024-09-06 15:57] LABS: Alanine Aminotransferase 55 IU/L (<35); Albumin 4.2 g/dL (3.5-5.0); Albumin Globulin Ratio 0.9 (1.0-2.8); Alkaline Phosphatase 167 U/L (38-126); Aspartate Aminotransferase 73 IU/L (14-36); BUN Creatinine Ratio 5.8 (6-22); Blood Urea Nitrogen 4 mg/dL (7-17); Calcium 8.7 mg/dL (8.4-10.2); Carbon Dioxide 26 mmol/L (22-32); Chloride 105 mmol/L (98-107); Creatine Kinase 99 U/L (30-135); Estimated Glomerular Filt Rate > 60 mL/min (>60); Globulin 4.7 g/dL (1.7-4.1); Glucose 98 mg/dL (70-99); HEMOLYSIS < 15 (0-50); Lactate (Lactic Acid) 0.6 mmol/L (0.7-2.1); Lipase 73 U/L (23-300); Potassium 3.4 mmol/L (3.4-5.1); Sodium 138 mmol/L (137-145); Total Protein 8.9 g/dL (6.3-8.2)
[2024-09-06 16:08] LABS: Add Manual Diff / Slide Review NO; Basophils Absolute Auto 100 /uL (0-100); Basophils Percent Auto 0.8 % (0-2); Eosinophils Absolute Auto 600 /uL (0-450); Eosinophils Percent Auto 8.3 % (2-4); Hematocrit 36.3 % (36-46); Hemoglobin 12.5 g/dL (12.0-16.0); Lymphocytes Absolute Auto 2800 /uL (1100-4500); Mean Corpuscular HGB Conc 34.5 % (30-36); Mean Corpuscular Hemoglobin 28.6 PG (26-34); Mean Corpuscular Volume 82.9 fL (80-100); Monocytes Absolute Auto 500 /uL (0-900); Monocytes Percent Auto 6.4 % (3-14); NT-proBNP (BNP-Adult 18+) 104 pg/mL (<125); Neutrophils Absolute Auto 3800 /uL (1500-7000); Neutrophils Percent Auto 48.5 % (50-75); Platelet Count 327 X10^3/uL (150-400); Red Blood Cell Count 4.37 X10^6/uL (4.0-5.2); Red Cell Distribution Width 14.7 % (11.6-14.8); Troponin I 0.014 ng/mL (0.01-0.034); White Blood Cell Count 7.8 X10^3/uL (4.5-11.0)
[2024-09-06] MEDS: ASPIRIN 81 MG CHEW TAB 324 MG PO (16:28)
--- NOTE | 2024-09-06 16:32 | PC.NURSE ---
Pt reports intermittent LEFT sided chest pain that is sharp and radiates to LEFT neck, with dizziness, headache and nausea which all began last Monday. No recent trauma. No recent sick contacts. Pt reports dry cough since last December which she states is from Covid. She is A&Ox4. GCS15.
[2024-09-06] MEDS: SODIUM CHLORIDE 0.9% 1,000 ML 1000 ML IV ×2 (16:53→19:33)
--- NOTE | 2024-09-06 17:03 | PC.NURSE ---
pt complains of dizziness while sitting in bed. She states the dizziness gets worse when she moves her head. She was placed in low supine with head at approx 15 degrees. She states she feels better but is having 4/10 headache pain for a couple of days.
--- NOTE | 2024-09-06 18:42 | ED.CHESTPAIN ---
HPI - Chest Pain General Chief Complaint: Chest Pain Stated Complaint: chest and arm px Time Seen by Provider: 09/06/24 18:42 Source: patient Mode of arrival: Ambulatory Limitations: no limitations History of Present Illness HPI narrative: 38-year-old female history of lupus, rheumatoid arthritis, anxiety, presents with intermittent chest pain that has been going on for the past few weeks. She presents today with chest pain described as thin needle stabbing pain started midsternal and did radiate to the left arm it was a 6/10 before she came here and is now /10 without any treatments at this time. Patient has not taken anything for it, and nothing makes it better or worse. Other than what is stated 14 point review of system is negative. Related Data Home Medications Medication Instructions Recorded Confirmed acetaminophen 500 mg tablet 1,000 mg PO Q6H PRN Mild Pain 08/25/21 08/25/21 (Acetaminophen Extra Strength) (Scale Score 1-4) ibuprofen 400 mg tablet 400 mg PO Q6H PRN Mild Pain (Scale 08/25/21 08/25/21 Score 1-4) Previous Rx's Medication Instructions Recorded amoxicillin 875 mg-potassium 1 tab PO BID #20 tabs 08/27/21 clavulanate 125 mg tablet ondansetron 4 mg disintegrating 4 mg PO Q6H PRN nausea and 08/21/22 tablet vomiting #10 tabs cephalexin 500 mg capsule 500 mg PO BID #14 caps 08/23/22 Allergies Allergy/AdvReac Type Severity Reaction Status Date / Time No Known Drug Allergies Allergy Verified 09/06/24 15:33 Review of Systems Review of Systems ROS Unobtainable: All systems reviewed & are unremarkable except as noted in HPI and below Patient History Medical History Sterilization (~04/10/20) Vaginal delivery (~04/10/20) Loss of teeth due to extraction (spontaneous vaginal delivery) Incomplete miscarriage (~03/2019) History of multiple miscarriages Surgical History H/O dilation and curettage (~03/28/19) History of open reduction and internal fixation (ORIF) procedure (~2012) Hx laparoscopic cholecystectomy (~2003) Family History Father Diabetes mellitus Colon cancer Septicemia Mother Graves disease Nervous breakdown Alcohol abuse Grandmother Leukemia Septicemia Grandfather Stomach ulcer Grandfather No problems noted. Grandmother No problems noted. 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 Well-developed patient, in mild distress. HEAD: Atraumatic. Normocephalic. EYES: Pupils equal round and reactive. Extraocular motions intact. No scleral icterus. No injection or drainage. ENT: Nose without bleeding, purulent drainage. Throat without erythema, tonsillar hypertrophy or exudate. Airway patent. NECK: Trachea midline. Non tender CARDIOVASCULAR: Regular rate and rhythm without murmurs, gallops, or rubs. RESPIRATORY: Clear to auscultation. Breath sounds equal bilaterally. No wheezes, rales, or rhonchi. GASTROINTESTINAL: Abdomen soft, non-tender, nondistended. EXTREMITIES: No edema or joint tenderness. BACK: Nontender without deformity or crepitance. No flank tenderness. NEURO: AOx3. SKIN: No rash or erythema of visible areas Initial Vital Signs Initial Vital Signs: Vital Signs Temperature 97 F L 09/06/24 15:33 Pulse Rate 83 09/06/24 15:33 Respiratory Rate 19 09/06/24 15:33 Blood Pressure 109/54 L 09/06/24 15:33 Pulse Oximetry 100 09/06/24 15:33 Oxygen Delivery Method Room Air 09/06/24 15:33 Scores HEART Score Heart Score history: Moderately Suspicious Heart Score EKG: Normal Heart Score Age: < 45 years old Heart Score risk factors: No known risk factors Heart Score troponin: < or = to normal limit Heart Score Total: 1 Course Orders Ordered: ED Orders 09/06/24 15:19 EKG-12 Lead Stat 09/06/24 15:25 Complete Blood Count AUTO DIFF Stat Comprehensive Metabolic Panel Stat Lactate (Lactic Acid) Stat Lipase Stat Magnesium Stat NT-proBNP (BNP-Adult 18+) Stat PTT Partial Thromboplastin Mark Stat Prothrombin Time INR Stat Troponin & CK Cardiac Panel Stat 09/06/24 15:40 XR chest 1V Stat RT Consult Eval and Treat NOW 09/06/24 19:11 Troponin I Stat Sodium Chloride (Normal Saline 0.9%) 1,000 mls @ 1,000 mls/hr IV BOLUS PRN PRN Reason: Fluid replacement Discontinued Medications Aspirin (Aspirin 81 Mg Chew Tab) 324 mg PO NOW ONE Stop: 09/06/24 15:41 Last Admin: 09/06/24 16:28 Dose: 324 mg Documented By: BUTCH Sodium Chloride (Normal Saline 0.9%) 1,000 mls @ 1,000 mls/hr IV BOLUS ONE Stop: 09/06/24 17:46 Last Infusion: 09/06/24 18:04 Dose: Infused Documented By: Admin: 09/06/24 16:53 Dose: 1,000 mls/hr Documented By: LANEY Sodium Chloride (Normal Saline 0.9%) 1,000 mls @ 1,000 mls/hr IV BOLUS ONE Stop: 09/06/24 20:31 Last Infusion: 09/06/24 20:29 Dose: Infused Documented By: Admin: 09/06/24 19:33 Dose: 1,000 mls/hr Documented By: LANEY Vital Signs Vital signs: Vital Signs - 8 hr 09/06/24 15:33 09/06/24 16:21 09/06/24 16:22 Temperature 97 F L Pulse Rate 83 Pulse Rate [Orthostatic Lying] Pulse Rate [Orthostatic Sitting] Pulse Rate [Orthostatic Standing] Respiratory Rate 19 Blood Pressure 109/54 L 105/51 L Blood Pressure [Orthostatic Lying] Blood Pressure [Orthostatic Sitting] Blood Pressure [Orthostatic Standing] Pulse Oximetry 100 92 Oxygen Delivery Method Room Air 09/06/24 16:22 09/06/24 16:30 09/06/24 16:31 Temperature Pulse Rate 80 88 86 Pulse Rate [Orthostatic Lying] Pulse Rate [Orthostatic Sitting] Pulse Rate [Orthostatic Standing] Respiratory Rate 20 21 Blood Pressure Blood Pressure [Orthostatic Lying] Blood Pressure [Orthostatic Sitting] Blood Pressure [Orthostatic Standing] Pulse Oximetry 99 99 100 Oxygen Delivery Method 09/06/24 16:31 09/06/24 16:40 09/06/24 16:40 Temperature Pulse Rate 79 Pulse Rate [Orthostatic Lying] Pulse Rate [Orthostatic Sitting] Pulse Rate [Orthostatic Standing] Respiratory Rate 23 Blood Pressure 115/47 L 87/52 L Blood Pressure [Orthostatic Lying] Blood Pressure [Orthostatic Sitting] Blood Pressure [Orthostatic Standing] Pulse Oximetry 100 Oxygen Delivery Method 09/06/24 16:42 09/06/24 16:42 09/06/24 16:45 Temperature Pulse Rate 86 Pulse Rate [Orthostatic Lying] 85 Pulse Rate [Orthostatic Sitting] 109 H Pulse Rate [Orthostatic Standing] 90 Respiratory Rate 19 Blood Pressure 92/53 L Blood Pressure [Orthostatic Lying] 87/52 L Blood Pressure [Orthostatic Sitting] 93/54 L Blood Pressure [Orthostatic Standing] 90/52 L Pulse Oximetry 99 Oxygen Delivery Method 09/06/24 17:00 09/06/24 17:01 09/06/24 17:01 Temperature Pulse Rate 80 82 Pulse Rate [Orthostatic Lying] Pulse Rate [Orthostatic Sitting] Pulse Rate [Orthostatic Standing] Respiratory Rate 22 20 Blood Pressure 108/48 L Blood Pressure [Orthostatic Lying] Blood Pressure [Orthostatic Sitting] Blood Pressure [Orthostatic Standing] Pulse Oximetry 99 100 Oxygen Delivery Method 09/06/24 17:05 09/06/24 17:07 09/06/24 17:07 Temperature Pulse Rate 81 79 Pulse Rate [Orthostatic Lying] Pulse Rate [Orthostatic Sitting] Pulse Rate [Orthostatic Standing] Respiratory Rate 20 21 Blood Pressure 112/65 Blood Pressure [Orthostatic Lying] Blood Pressure [Orthostatic Sitting] Blood Pressure [Orthostatic Standing] Pulse Oximetry 100 100 Oxygen Delivery Method 09/06/24 17:10 09/06/24 17:10 09/06/24 17:15 Temperature Pulse Rate 84 82 Pulse Rate [Orthostatic Lying] Pulse Rate [Orthostatic Sitting] Pulse Rate [Orthostatic Standing] Respiratory Rate 20 22 Blood Pressure 112/65 Blood Pressure [Orthostatic Lying] Blood Pressure [Orthostatic Sitting] Blood Pressure [Orthostatic Standing] Pulse Oximetry 98 99 Oxygen Delivery Method 09/06/24 17:15 09/06/24 17:20 09/06/24 17:20 Temperature Pulse Rate 80 Pulse Rate [Orthostatic Lying] Pulse Rate [Orthostatic Sitting] Pulse Rate [Orthostatic Standing] Respiratory Rate 22 Blood Pressure 106/65 103/61 Blood Pressure [Orthostatic Lying] Blood Pressure [Orthostatic Sitting] Blood Pressure [Orthostatic Standing] Pulse Oximetry 99 Oxygen Delivery Method 09/06/24 17:25 09/06/24 17:25 09/06/24 17:30 Temperature Pulse Rate 80 79 Pulse Rate [Orthostatic Lying] Pulse Rate [Orthostatic Sitting] Pulse Rate [Orthostatic Standing] Respiratory Rate 20 18 Blood Pressure 103/60 Blood Pressure [Orthostatic Lying] Blood Pressure [Orthostatic Sitting] Blood Pressure [Orthostatic Standing] Pulse Oximetry 99 99 Oxygen Delivery Method 09/06/24 17:30 09/06/24 17:35 09/06/24 17:35 Temperature Pulse Rate 78 Pulse Rate [Orthostatic Lying] Pulse Rate [Orthostatic Sitting] Pulse Rate [Orthostatic Standing] Respiratory Rate 20 Blood Pressure 103/62 106/61 Blood Pressure [Orthostatic Lying] Blood Pressure [Orthostatic Sitting] Blood Pressure [Orthostatic Standing] Pulse Oximetry 100 Oxygen Delivery Method 09/06/24 17:40 09/06/24 17:40 09/06/24 17:45 Temperature Pulse Rate 82 80 Pulse Rate [Orthostatic Lying] Pulse Rate [Orthostatic Sitting] Pulse Rate [Orthostatic Standing] Respiratory Rate 18 20 Blood Pressure 105/63 Blood Pressure [Orthostatic Lying] Blood Pressure [Orthostatic Sitting] Blood Pressure [Orthostatic Standing] Pulse Oximetry 100 100 Oxygen Delivery Method 09/06/24 17:45 09/06/24 17:50 09/06/24 17:50 Temperature Pulse Rate 81 Pulse Rate [Orthostatic Lying] Pulse Rate [Orthostatic Sitting] Pulse Rate [Orthostatic Standing] Respiratory Rate 20 Blood Pressure 103/62 104/63 Blood Pressure [Orthostatic Lying] Blood Pressure [Orthostatic Sitting] Blood Pressure [Orthostatic Standing] Pulse Oximetry 100 Oxygen Delivery Method 09/06/24 17:55 09/06/24 17:55 09/06/24 18:00 Temperature Pulse Rate 84 Pulse Rate [Orthostatic Lying] Pulse Rate [Orthostatic Sitting] Pulse Rate [Orthostatic Standing] Respiratory Rate 18 Blood Pressure 105/67 98/62 Blood Pressure [Orthostatic Lying] Blood Pressure [Orthostatic Sitting] Blood Pressure [Orthostatic Standing] Pulse Oximetry 99 Oxygen Delivery Method 09/06/24 18:00 09/06/24 18:05 09/06/24 18:05 Temperature Pulse Rate 81 83 Pulse Rate [Orthostatic Lying] Pulse Rate [Orthostatic Sitting] Pulse Rate [Orthostatic Standing] Respiratory Rate 21 20 Blood Pressure 104/65 Blood Pressure [Orthostatic Lying] Blood Pressure [Orthostatic Sitting] Blood Pressure [Orthostatic Standing] Pulse Oximetry 98 98 Oxygen Delivery Method 09/06/24 18:10 09/06/24 18:10 09/06/24 18:15 Temperature Pulse Rate 80 81 Pulse Rate [Orthostatic Lying] Pulse Rate [Orthostatic Sitting] Pulse Rate [Orthostatic Standing] Respiratory Rate 18 20 Blood Pressure 101/65 Blood Pressure [Orthostatic Lying] Blood Pressure [Orthostatic Sitting] Blood Pressure [Orthostatic Standing] Pulse Oximetry 97 98 Oxygen Delivery Method 09/06/24 18:15 09/06/24 18:20 09/06/24 18:20 Temperature Pulse Rate 82 Pulse Rate [Orthostatic Lying] Pulse Rate [Orthostatic Sitting] Pulse Rate [Orthostatic Standing] Respiratory Rate 20 Blood Pressure 100/62 102/62 Blood Pressure [Orthostatic Lying] Blood Pressure [Orthostatic Sitting] Blood Pressure [Orthostatic Standing] Pulse Oximetry 98 Oxygen Delivery Method 09/06/24 18:25 09/06/24 18:25 09/06/24 18:30 Temperature Pulse Rate 80 84 Pulse Rate [Orthostatic Lying] Pulse Rate [Orthostatic Sitting] Pulse Rate [Orthostatic Standing] Respiratory Rate 24 24 Blood Pressure 100/58 L Blood Pressure [Orthostatic Lying] Blood Pressure [Orthostatic Sitting] Blood Pressure [Orthostatic Standing] Pulse Oximetry 97 98 Oxygen Delivery Method 09/06/24 18:30 09/06/24 18:35 09/06/24 18:35 Temperature Pulse Rate 81 Pulse Rate [Orthostatic Lying] Pulse Rate [Orthostatic Sitting] Pulse Rate [Orthostatic Standing] Respiratory Rate 22 Blood Pressure 114/65 100/60 Blood Pressure [Orthostatic Lying] Blood Pressure [Orthostatic Sitting] Blood Pressure [Orthostatic Standing] Pulse Oximetry 98 Oxygen Delivery Method 09/06/24 18:40 09/06/24 18:40 09/06/24 18:47 Temperature Pulse Rate 82 Pulse Rate [Orthostatic Lying] Pulse Rate [Orthostatic Sitting] Pulse Rate [Orthostatic Standing] Respiratory Rate 21 Blood Pressure 122/61 94/55 L Blood Pressure [Orthostatic Lying] Blood Pressure [Orthostatic Sitting] Blood Pressure [Orthostatic Standing] Pulse Oximetry Oxygen Delivery Method 09/06/24 18:47 09/06/24 18:50 09/06/24 18:50 Temperature Pulse Rate 82 83 Pulse Rate [Orthostatic Lying] Pulse Rate [Orthostatic Sitting] Pulse Rate [Orthostatic Standing] Respiratory Rate 20 22 Blood Pressure 96/53 L Blood Pressure [Orthostatic Lying] Blood Pressure [Orthostatic Sitting] Blood Pressure [Orthostatic Standing] Pulse Oximetry 99 100 Oxygen Delivery Method 09/06/24 18:55 09/06/24 18:55 09/06/24 19:00 Temperature Pulse Rate 81 81 Pulse Rate [Orthostatic Lying] Pulse Rate [Orthostatic Sitting] Pulse Rate [Orthostatic Standing] Respiratory Rate 20 22 Blood Pressure 104/51 L Blood Pressure [Orthostatic Lying] Blood Pressure [Orthostatic Sitting] Blood Pressure [Orthostatic Standing] Pulse Oximetry 99 98 Oxygen Delivery Method 09/06/24 19:00 09/06/24 19:05 09/06/24 19:05 Temperature Pulse Rate 81 Pulse Rate [Orthostatic Lying] Pulse Rate [Orthostatic Sitting] Pulse Rate [Orthostatic Standing] Respiratory Rate 21 Blood Pressure 95/48 L 78/39 L Blood Pressure [Orthostatic Lying] Blood Pressure [Orthostatic Sitting] Blood Pressure [Orthostatic Standing] Pulse Oximetry 99 Oxygen Delivery Method 09/06/24 19:07 09/06/24 19:07 09/06/24 19:10 Temperature Pulse Rate 84 82 Pulse Rate [Orthostatic Lying] Pulse Rate [Orthostatic Sitting] Pulse Rate [Orthostatic Standing] Respiratory Rate 20 22 Blood Pressure 87/49 L Blood Pressure [Orthostatic Lying] Blood Pressure [Orthostatic Sitting] Blood Pressure [Orthostatic Standing] Pulse Oximetry 100 100 Oxygen Delivery Method 09/06/24 19:10 09/06/24 19:13 09/06/24 19:13 Temperature Pulse Rate 85 Pulse Rate [Orthostatic Lying] Pulse Rate [Orthostatic Sitting] Pulse Rate [Orthostatic Standing] Respiratory Rate 20 Blood Pressure 97/56 L 111/62 Blood Pressure [Orthostatic Lying] Blood Pressure [Orthostatic Sitting] Blood Pressure [Orthostatic Standing] Pulse Oximetry 99 Oxygen Delivery Method 09/06/24 19:15 09/06/24 19:15 09/06/24 19:20 Temperature Pulse Rate 86 85 Pulse Rate [Orthostatic Lying] Pulse Rate [Orthostatic Sitting] Pulse Rate [Orthostatic Standing] Respiratory Rate 20 20 Blood Pressure 113/64 Blood Pressure [Orthostatic Lying] Blood Pressure [Orthostatic Sitting] Blood Pressure [Orthostatic Standing] Pulse Oximetry 100 99 Oxygen Delivery Method 09/06/24 19:20 09/06/24 19:25 09/06/24 19:25 Temperature Pulse Rate 84 Pulse Rate [Orthostatic Lying] Pulse Rate [Orthostatic Sitting] Pulse Rate [Orthostatic Standing] Respiratory Rate 19 Blood Pressure 102/60 104/63 Blood Pressure [Orthostatic Lying] Blood Pressure [Orthostatic Sitting] Blood Pressure [Orthostatic Standing] Pulse Oximetry 99 Oxygen Delivery Method 09/06/24 19:30 09/06/24 19:30 09/06/24 19:35 Temperature Pulse Rate 83 Pulse Rate [Orthostatic Lying] Pulse Rate [Orthostatic Sitting] Pulse Rate [Orthostatic Standing] Respiratory Rate 21 Blood Pressure 107/62 113/67 Blood Pressure [Orthostatic Lying] Blood Pressure [Orthostatic Sitting] Blood Pressure [Orthostatic Standing] Pulse Oximetry 100 Oxygen Delivery Method 09/06/24 19:35 09/06/24 19:40 09/06/24 19:40 Temperature Pulse Rate 87 90 Pulse Rate [Orthostatic Lying] Pulse Rate [Orthostatic Sitting] Pulse Rate [Orthostatic Standing] Respiratory Rate 20 24 Blood Pressure 111/70 Blood Pressure [Orthostatic Lying] Blood Pressure [Orthostatic Sitting] Blood Pressure [Orthostatic Standing] Pulse Oximetry 100 99 Oxygen Delivery Method 09/06/24 19:45 09/06/24 19:45 09/06/24 19:50 Temperature Pulse Rate 88 87 Pulse Rate [Orthostatic Lying] Pulse Rate [Orthostatic Sitting] Pulse Rate [Orthostatic Standing] Respiratory Rate 24 23 Blood Pressure 98/56 L Blood Pressure [Orthostatic Lying] Blood Pressure [Orthostatic Sitting] Blood Pressure [Orthostatic Standing] Pulse Oximetry 99 100 Oxygen Delivery Method 09/06/24 19:50 09/06/24 19:55 09/06/24 19:55 Temperature Pulse Rate 86 Pulse Rate [Orthostatic Lying] Pulse Rate [Orthostatic Sitting] Pulse Rate [Orthostatic Standing] Respiratory Rate 21 Blood Pressure 105/63 108/63 Blood Pressure [Orthostatic Lying] Blood Pressure [Orthostatic Sitting] Blood Pressure [Orthostatic Standing] Pulse Oximetry 100 Oxygen Delivery Method 09/06/24 20:00 09/06/24 20:00 09/06/24 20:05 Temperature Pulse Rate 86 87 Pulse Rate [Orthostatic Lying] Pulse Rate [Orthostatic Sitting] Pulse Rate [Orthostatic Standing] Respiratory Rate 23 22 Blood Pressure 111/64 Blood Pressure [Orthostatic Lying] Blood Pressure [Orthostatic Sitting] Blood Pressure [Orthostatic Standing] Pulse Oximetry 100 95 Oxygen Delivery Method 09/06/24 20:05 09/06/24 20:10 09/06/24 20:10 Temperature Pulse Rate 85 Pulse Rate [Orthostatic Lying] Pulse Rate [Orthostatic Sitting] Pulse Rate [Orthostatic Standing] Respiratory Rate 24 Blood Pressure 111/60 113/64 Blood Pressure [Orthostatic Lying] Blood Pressure [Orthostatic Sitting] Blood Pressure [Orthostatic Standing] Pulse Oximetry 100 Oxygen Delivery Method 09/06/24 20:15 09/06/24 20:15 09/06/24 20:20 Temperature Pulse Rate 86 87 Pulse Rate [Orthostatic Lying] Pulse Rate [Orthostatic Sitting] Pulse Rate [Orthostatic Standing] Respiratory Rate 21 23 Blood Pressure 114/63 Blood Pressure [Orthostatic Lying] Blood Pressure [Orthostatic Sitting] Blood Pressure [Orthostatic Standing] Pulse Oximetry 99 100 Oxygen Delivery Method 09/06/24 20:20 09/06/24 20:25 09/06/24 20:25 Temperature Pulse Rate 82 Pulse Rate [Orthostatic Lying] Pulse Rate [Orthostatic Sitting] Pulse Rate [Orthostatic Standing] Respiratory Rate 18 Blood Pressure 109/61 114/66 Blood Pressure [Orthostatic Lying] Blood Pressure [Orthostatic Sitting] Blood Pressure [Orthostatic Standing] Pulse Oximetry 98 Oxygen Delivery Method 09/06/24 20:30 09/06/24 20:30 09/06/24 20:35 Temperature Pulse Rate 84 Pulse Rate [Orthostatic Lying] Pulse Rate [Orthostatic Sitting] Pulse Rate [Orthostatic Standing] Respiratory Rate 20 Blood Pressure 115/71 110/66 Blood Pressure [Orthostatic Lying] Blood Pressure [Orthostatic Sitting] Blood Pressure [Orthostatic Standing] Pulse Oximetry 98 Oxygen Delivery Method 09/06/24 20:35 09/06/24 20:40 09/06/24 20:40 Temperature Pulse Rate 80 81 Pulse Rate [Orthostatic Lying] Pulse Rate [Orthostatic Sitting] Pulse Rate [Orthostatic Standing] Respiratory Rate 20 20 Blood Pressure 109/66 Blood Pressure [Orthostatic Lying] Blood Pressure [Orthostatic Sitting] Blood Pressure [Orthostatic Standing] Pulse Oximetry 98 98 Oxygen Delivery Method 09/06/24 20:45 09/06/24 20:45 09/06/24 20:50 Temperature Pulse Rate 80 86 Pulse Rate [Orthostatic Lying] Pulse Rate [Orthostatic Sitting] Pulse Rate [Orthostatic Standing] Respiratory Rate 18 20 Blood Pressure 108/66 Blood Pressure [Orthostatic Lying] Blood Pressure [Orthostatic Sitting] Blood Pressure [Orthostatic Standing] Pulse Oximetry 98 100 Oxygen Delivery Method 09/06/24 20:50 09/06/24 20:55 09/06/24 20:55 Temperature Pulse Rate 82 Pulse Rate [Orthostatic Lying] Pulse Rate [Orthostatic Sitting] Pulse Rate [Orthostatic Standing] Respiratory Rate 19 Blood Pressure 106/65 102/57 L Blood Pressure [Orthostatic Lying] Blood Pressure [Orthostatic Sitting] Blood Pressure [Orthostatic Standing] Pulse Oximetry 99 Oxygen Delivery Method 09/06/24 21:00 09/06/24 21:00 09/06/24 21:05 Temperature Pulse Rate 80 85 Pulse Rate [Orthostatic Lying] Pulse Rate [Orthostatic Sitting] Pulse Rate [Orthostatic Standing] Respiratory Rate 23 22 Blood Pressure 105/63 Blood Pressure [Orthostatic Lying] Blood Pressure [Orthostatic Sitting] Blood Pressure [Orthostatic Standing] Pulse Oximetry 98 98 Oxygen Delivery Method 09/06/24 21:05 09/06/24 21:10 09/06/24 21:10 Temperature Pulse Rate 80 Pulse Rate [Orthostatic Lying] Pulse Rate [Orthostatic Sitting] Pulse Rate [Orthostatic Standing] Respiratory Rate 18 Blood Pressure 110/69 101/65 Blood Pressure [Orthostatic Lying] Blood Pressure [Orthostatic Sitting] Blood Pressure [Orthostatic Standing] Pulse Oximetry 99 Oxygen Delivery Method 09/06/24 21:15 09/06/24 21:15 09/06/24 21:20 Temperature Pulse Rate 84 83 Pulse Rate [Orthostatic Lying] Pulse Rate [Orthostatic Sitting] Pulse Rate [Orthostatic Standing] Respiratory Rate 20 22 Blood Pressure 105/66 Blood Pressure [Orthostatic Lying] Blood Pressure [Orthostatic Sitting] Blood Pressure [Orthostatic Standing] Pulse Oximetry 98 99 Oxygen Delivery Method 09/06/24 21:20 Temperature Pulse Rate Pulse Rate [Orthostatic Lying] Pulse Rate [Orthostatic Sitting] Pulse Rate [Orthostatic Standing] Respiratory Rate Blood Pressure 94/51 L Blood Pressure [Orthostatic Lying] Blood Pressure [Orthostatic Sitting] Blood Pressure [Orthostatic Standing] Pulse Oximetry Oxygen Delivery Method MDM - Chest Pain Lab Data 09/06/24 15:25 09/06/24 15:25 Labs: Lab Results 09/06/24 09/06/24 Range/Units 15:25 19:11 WBC 7.8 (4.5-11.0) X10^3/uL RBC 4.37 (4.0-5.2) X10^6/uL Hgb 12.5 (12.0-16.0) g/dL Hct 36.3 (36-46) % MCV 82.9 (80-100) fL MCH 28.6 (26-34) PG MCHC 34.5 (30-36) % RDW 14.7 (11.6-14.8) % Plt Count 327 (150-400) X10^3/uL Neut % (Auto) 48.5 L (50-75) % Lymph % (Auto) 36.0 (25-40) % Rich % (Auto) 6.4 (3-14) % Eos % (Auto) 8.3 H (2-4) % Baso % (Auto) 0.8 (0-2) % Neut # (Auto) 3800 (1574-8765) /uL Lymph # (Auto) 2800 (8512-5207) /uL Rich # (Auto) 500 (0-900) /uL Eos # (Auto) 600 H (0-450) /uL Baso # (Auto) 100 (0-100) /uL PT 12.7 H (9.4-12.5) SECONDS INR 1.1 (0.9-1.3) APTT 32 (25.1-36.5) SECONDS Sodium 138 (137-145) mmol/L Potassium 3.4 (3.4-5.1) mmol/L Chloride 105 (98-107) mmol/L Carbon Dioxide 26 (22-32) mmol/L BUN 4 L (7-17) mg/dL Creatinine 0.69 (0.52-1.04) mg/dL Estimated GFR > 60 (>60) mL/min BUN/Creatinine Ratio 5.8 L (6-22) Glucose 98 (70-99) mg/dL Lactate 0.6 L (0.7-2.1) mmol/L Calcium 8.7 (8.4-10.2) mg/dL Magnesium 2.0 (1.6-2.3) mg/dL Total Bilirubin 1.0 (0.2-1.3) mg/dL AST 73 H (14-36) IU/L ALT 55 H (<35) IU/L Alkaline Phosphatase 167 H (38-126) U/L Total Creatine Kinase 99 (30-135) U/L Troponin I 0.014 < 0.012 (0.01-0.034) ng/mL NT-Pro-B Natriuret Pep 104 (<125) pg/mL Total Protein 8.9 H (6.3-8.2) g/dL Albumin 4.2 (3.5-5.0) g/dL Globulin 4.7 H (1.7-4.1) g/dL Albumin/Globulin Ratio 0.9 L (1.0-2.8) Lipase 73 (23-300) U/L Imaging Data Chest x-ray: Radiologist's Impression: [place] [address] XRay Report Signed Patient: Lisa Rodriguez MR#: [id number] : 1985 Acct:[id number] Age/Sex: 38 / F Date of Service: 09/06/24 Loc: ED Accession Number: [id number] Procedure: XR chest 1V Ordering Provider: Shirley Alanis D.O. PROCEDURE: XR CHEST 1V INDICATIONS: Chest Pain TECHNIQUE: One view of the chest was acquired. COMPARISON: [facility], CR, XR CHEST 1V, 07/17/2023, 21:06. [facility], CR, XR CHEST 1V, 12/15/2022, 3:12. FINDINGS: Surgical changes and devices: None. Lungs and pleura: Lungs are clear. No pleural effusions or pneumothorax. Mediastinum: Mediastinal contours appear normal. Heart size is normal. Bones and chest wall: No suspicious bony lesions. Overlying soft tissues appear unremarkable. IMPRESSION: No acute cardiopulmonary abnormality is seen. ECG Data Interpretation: NSR HR 86 CT 152 QRS [address]-t wave change No old ekg to compare to MDM Narrative Medical decision making narrative: All lab work, vital signs, nurse triage note, medication list, chest x-ray, and all previous ER visits all reviewed. Patient has been reexamined multiple times and is currently pain-free now. Patient was given 2 L of normal saline here which blood pressure came up to 110 systolic. Heart score of 1 with 2 sets of negative troponin and normal EKG. Differential diagnosis includes anxiety GERD atypical chest pain STEMI NSTEMI unstable angina. Patient will follow up with PCP on Monday for re-evaluation. Discharge Plan Departure Patient Disposition: Home Clinical Impression: Chest pain Qualifiers: Chest pain type: chest pain on breathing Qualified Code(s): R07.1 - Chest pain on breathing Instructions: DI for Chest Pain Activity Restrictions/Additional Instructions: Return with new or worsening symptoms. Follow up with PCP on Monday for re-evaluation. Prescriptions: No Action acetaminophen [Acetaminophen Extra Strength] 500 mg Tablet 1,000 mg PO Q6H PRN (Reason: Mild Pain (Scale Score 1-4)) ibuprofen 400 mg Tablet 400 mg PO Q6H PRN (Reason: Mild Pain (Scale Score 1-4)) amoxicillin-pot clavulanate 875-125 mg Tablet 1 tab PO BID Qty: 20 0RF ondansetron 4 mg tablet,disintegrating 4 mg PO Q6H PRN (Reason: nausea and vomiting) Qty: 10 0RF cephalexin 500 mg capsule 500 mg PO BID Qty: 14 0RF Referrals: Kadie Greene MD [Primary Care Provider] - Stand Alone Forms: Patient Portal/API/Survey
[2024-09-06 19:39] LABS: Troponin I < 0.012 ng/mL (0.01-0.034)
--- NOTE | 2024-09-06 21:53 | PC.NURSE ---
pt stated a history of ear drum rupture and being seen by a provider for it. She stated that the provider suggested her dizziness was related to her prior ear drum rupture and subsequent hole she has in her ear drum
== END 2024-09-06 21:55 | disposition home or self-care (01) ==
PROVIDERS: Emergency Medicine; Emergency Provider Family Medicine; PCP Family Medicine
DX: R07.1 Chest pain on breathing (principal)
CPT/HCPCS: 71045; 80053; 82550; 83605; 83690; 83735; 83880; 84484; 85025; 85610; 85730; 93005; 96360; 96361; 99284